=== PATIENT | female | born 1940 | race Caucasian/White ===

== ENCOUNTER 2020-05-31 13:44 | Outpatient (REF) | payer MEDICARE, SELFPAY ==
--- NOTE | 2020-05-31 13:49 | MM_ITS ---
EXAMINATION: MM SCREENING DIGITAL BREAST TOMOSYNTHESIS, BILATERAL CLINICAL INFORMATION: Screening. Asymptomatic. The lifetime risk of breast cancer based on the Tyrer-Cuzick Model is 1%. COMPARISON: Mammography: 08/25/2018, 08/14/2017, 07/30/2016 TECHNIQUE: Digital breast tomosynthesis is performed in both the craniocaudal and mediolateral oblique views along with computer-aided detection (CAD). Synthesized 2D images are generated from the tomosynthesis. FINDINGS: There are scattered areas of fibroglandular density (ACR BI-RADS breast composition Category b). There are no significant masses, abnormal calcifications, or other abnormalities. There is a retroareolar nodule left breast again seen similar to prior exams. There are bilateral vascular calcifications again noted. The axilla and skin contours are unremarkable. MM/MM tomosynthesis screening BI IMPRESSION: No significant changes from prior studies. ASSESSMENT: BI-RADS 2: Benign RECOMMENDATION: Routine annual mammography screening. This patient's information was entered into a reminder system with a target due date for their next mammogram.
== END 2020-05-31 13:45 | disposition home or self-care (01) ==
LOC: HO.MAMMO 13:44
PROVIDERS: PCP Internal Medicine; Visit Provider Internal Medicine
DX: Z12.31 Encounter for screening mammogram for malignant neoplasm of breast (principal)
CPT/HCPCS: 77063; 77067

== ENCOUNTER → 2020-10-15 14:07 | Outpatient (BNVA) | payer MEDICARE, SELFPAY | PROVIDERS: PCP Internal Medicine; Referring Provider Internal Medicine; Visit Provider Internal Medicine | DX: I48.19 Other persistent atrial fibrillation (principal); I95.9 Hypotension, unspecified; I36.1 Nonrheumatic tricuspid (valve) insufficiency | CPT/HCPCS: 93005; 99202 ==

== ENCOUNTER → 2020-10-23 09:45 | Outpatient (REF) | payer MEDICARE, SELFPAY ==
--- NOTE | 2020-10-23 12:06 | ECG_ITS ---
Hook-up date: 2020-10-23 10:18:00 Duration: 26:04:00 Test Indications: PERSISTANT AFIB Medications: [id number] QRS complexes 20 Ventricular ectopics which represent <1 % of total QRS comp. * Supraventricular ectopics which represent % of total QRS comp. * Paced QRS complexs which represent % of total QRS comp. VENTRICULAR ECTOPY 20 Isolated 0 Bigeminal Cycles 0 Couplets 0 Runs 0 Beats in Runs * Beats LONGEST at * BPM at :: -- * Beats FASTEST at * BPM at :: -- SUPRAVENTRICULAR ECTOPY * Isolated * Couplets * Runs * Beats in Runs * Beats LONGEST at * BPM at :: -- * Beats FASTEST at * BPM at :: -- HEART RATES 31 MIN at 15:36:50 2020-10-23 52 AVG 93 MAX at 18:04:44 2020-10-23 LONGEST RR 3.1840 secs at 21:12:20 2020-10-23 S-T LEVELS Channel 1 - 128 mm at 10:18:00 2020-10-23 - 128 mm at 10:18:00 2020-10-23 Channel 2 - 128 mm at 10:18:00 2020-10-23 - 128 mm at 10:18:00 2020-10-23 Channel 3 - 128 mm at 02:93:71 -- - 128 mm at 02:93:71 Basic rhythm Atrial fibrillation Frequent slow VR to AF with average HR of 52 bpm, 82% of time HR < 60 bpm Rare Premature atrial complexes No diary submitted Referred By: Carlitos Mohamud Overread By: ZULEMA DUPONT MD
== END ==
LOC: HO.CARD 09:45
PROVIDERS: PCP Internal Medicine; Referring Provider Internal Medicine; Visit Provider Internal Medicine
DX: I48.19 Other persistent atrial fibrillation (principal)
CPT/HCPCS: 93226

== ENCOUNTER → 2020-11-29 14:43 | Outpatient (REF) | payer MEDICARE, SELFPAY ==
--- NOTE | 2020-11-29 14:47 | CA_ITS ---
Transthoracic Echocardiogram Patient (Last, First, Middle): Abby Gilbert A Gender: Female Date of : 1940 Age: 80 Procedure Date: 11/29/2020 Procedure Type: Transthoracic Echocardiogram Location: OP Height: 165.1 cm Weight: 61.24 kg BSA: 1.67 m2 Heart Rate: bpm BP: 120 / 80 mmHg Pole Incisor Operator: FARSHAD Referring MD: Bryan Malin MD Symptoms: I48.19 - Other persistent atrial fibrillation Study Quality: Good ECG Rhythm: Sinus Conclusions: - The left ventricular systolic function is normal. The calculated ejection fraction is 68% by biplane method. - Mild biatrial enlargement. - There is mild mitral valve regurgitation. - There is moderate tricuspid valve regurgitation. - Mild pulmonary hypertension is present. Findings Left Ventricle Normal left ventricular cavity size. There is normal left ventricular wall thickness. The left ventricular systolic function is normal. The calculated ejection fraction is 68% by biplane method. There is no evidence of regional wall motion abnormalities. Diastolic function is indeterminate on the basis of available data. Right Ventricle Mildly increased right ventricular cavity size. There is low normal right ventricular systolic function. Atria Mild biatrial enlargement. Aortic Valve There is a normal trileaflet aortic valve. There is no aortic valve stenosis. There is no aortic valve regurgitation. Mitral Valve The mitral valve appears normal. There is mild mitral valve regurgitation. There is no mitral valve stenosis. Pulmonic Valve The pulmonic valve was not well visualized. Tricuspid Valve Normal tricuspid valve structure. There is moderate tricuspid valve regurgitation. The right ventricular systolic pressure is 47 mmHg. Mild pulmonary hypertension is present. Great Vessels The asc aorta and aortic arch are normal in size. Venous The inferior vena cava is normal in size and collapses greater than 50% with inspiration. Pericardium/Pleural There is no evidence of pericardial effusion. Prior Study Comparison No significant change compared to prior study dated: 07/07/2018. Measurements 2D Linear Measurements IVSd: 0.88 0.6-0.9/0.6-1.0 cm LVIDd: 4.32 3.9-5.3/4.2-5.9 cm LVIDd Index: 2.59 2.4-3.2/2.2-3.1 cm/m2 LVIDs: 2.55 2.0-3.6 cm LVPWd: 0.76 0.7-1.1 cm Ao Root: 3.10 2.1-3.5 cm LA Diam: 4.00 2.7-3.8/3.0-4.0 cm LAIDs Index: 2.40 1.5-2.3 cm/m2 LV Mass: 136.11 67-162/88-224 g LV Mass Index: 81.50 43-95/49-115 g/m2 LVOT Diam: 2.00 3.0+(-)1.3 cm 2D Systolic Function EF 4C: 57.90 >55% EF 2C: 74.90 >55% EF BiP: 68.20 >55% Aortic Valve AoV Pk Bear: 1.06 AoV Mn Bear: 0.74 AoV VTI: 0.24 AoV Pk Grad: 4.00 Aov Mn Grad: 2.00 CASH Cont.VTI: 2.31 LVOT LVOT Pk Bear: 0.80 LVOT Mn Bear: 0.56 LVOT VTI: 0.18 LVOT Pk Grad: 3.00 LVOT Mn Grad: 1.00 LVOT Diam: 2.00 LVOT Area: 3.14 Tricuspid Valve TR Pk Bear: 3.31 TR Pk Grad: 44.00 RA Press: 3.00 RVSP: 47.00 Great Vessels Aorta Ao Root-2D: 3.10 2.0-3.7 cm Ao Asc: 2.80 2.1-3.4 cm Ao Arch: 2.10 Updated in Other Vendor System with Status of Final Bryan Malin MD electronically signed on 11/30/2020 11:55:06 AM with status of Final
== END ==
LOC: HO.CARD 14:43
PROVIDERS: Visit Provider Internal Medicine
DX: I48.19 Other persistent atrial fibrillation (principal)
CPT/HCPCS: 93306

== ENCOUNTER → 2020-12-03 14:45 | Outpatient (BNVA) | payer MEDICARE, SELFPAY | PROVIDERS: PCP Internal Medicine; Referring Provider Internal Medicine; Visit Provider Internal Medicine | DX: I48.19 Other persistent atrial fibrillation (principal); I95.9 Hypotension, unspecified; I36.1 Nonrheumatic tricuspid (valve) insufficiency; I27.20 Pulmonary hypertension, unspecified; Z79.899 Other long term (current) drug therapy | CPT/HCPCS: 99212 ==

== ENCOUNTER → 2021-04-02 12:44 | Outpatient (BNVA) | payer MEDICARE, SELFPAY | PROVIDERS: PCP Internal Medicine; Referring Provider Internal Medicine; Visit Provider Internal Medicine | DX: I48.19 Other persistent atrial fibrillation (principal); I36.1 Nonrheumatic tricuspid (valve) insufficiency; I27.20 Pulmonary hypertension, unspecified; I95.9 Hypotension, unspecified | CPT/HCPCS: 99212 ==

== ENCOUNTER 2021-06-21 10:58 | Outpatient (REF) | payer MEDICARE, SELFPAY ==
--- NOTE | ~2021-06-21 | MM_ITS ---
EXAMINATION: MM SCREENING DIGITAL BREAST TOMOSYNTHESIS, BILATERAL CLINICAL INFORMATION: Screening. Asymptomatic. The lifetime risk of breast cancer based on the Tyrer-Cuzick Model is 1%. COMPARISON: Mammography: 05/31/2020, 08/25/2018, 08/14/2017, 07/30/2016 TECHNIQUE: Digital breast tomosynthesis is performed in both the craniocaudal and mediolateral oblique views along with computer-aided detection (CAD). Synthesized 2D images are generated from the tomosynthesis. FINDINGS: There are scattered areas of fibroglandular density (ACR BI-RADS breast composition Category b). There are no significant masses, abnormal calcifications, or other abnormalities. Parenchymal pattern is similar to prior studies. There is no developing density or architectural abnormality. There is chronic retroareolar nodule left breast similar to prior studies. Low bilateral small incidental axillary tail nodes again seen. There are bilateral vascular calcifications. No significant changes. MM/MM tomosynthesis screening BI IMPRESSION: No mammographic evidence of malignancy. ASSESSMENT: BI-RADS 2: Benign RECOMMENDATION: Routine annual mammography screening. This patient's information was entered into a reminder system with a target due date for their next mammogram.
== END 2021-06-21 10:59 | disposition home or self-care (01) ==
LOC: HO.MAMMO 10:58
PROVIDERS: PCP Internal Medicine; Visit Provider Internal Medicine
DX: Z12.31 Encounter for screening mammogram for malignant neoplasm of breast (principal)
CPT/HCPCS: 77063; 77067

== ENCOUNTER → 2022-06-03 10:47 | Outpatient (BNVA) | payer MEDICARE, SELFPAY | PROVIDERS: PCP Internal Medicine; Referring Provider Internal Medicine; Visit Provider Internal Medicine | DX: I48.19 Other persistent atrial fibrillation (principal); I95.9 Hypotension, unspecified; I36.1 Nonrheumatic tricuspid (valve) insufficiency; I27.20 Pulmonary hypertension, unspecified; Z79.01 Long term (current) use of anticoagulants; Z79.899 Other long term (current) drug therapy | CPT/HCPCS: 93005; 99212 ==

== ENCOUNTER 2022-06-04 12:00 | Day surgery (SDC) | payer MEDICARE, SELFPAY ==
--- NOTE | 2022-06-03 12:12 | HO.ANESPROP2 ---
Documented by User: Alessandra Sutton NP 06/03/22 12:17 HPI - Anesthesia Eval Consult details Narrative: 82yo F for Upper Endoscopy with Balloon Dilitation Eliquis for afib Stable at yearly cardiology office visit 06/03/2022 PMFSH Active Problems Active Problems: All Active Problems (Updated 12/03/20 @ 15:53 by Bryan Malin MD) Pulmonary hypertension (Acute) Non-rheumatic tricuspid valve insufficiency (Acute) Arterial hypotension (Acute) Persistent atrial fibrillation (Acute) Past Medical History Medical History Non-rheumatic tricuspid valve insufficiency Persistent atrial fibrillation Pulmonary hypertension Family History Family History Father Pacemaker Atrial fibrillation Mother Atrial fibrillation Surgical History Surgical History History of appendectomy History of cholecystectomy History of esophageal surgery History of hysterectomy History of prolapse of bladder Social History Social History Patient Tobacco Use Status: Never used Tobacco Are you DNR?: No Advance Directives: No Advance Directives Information Provided: Yes Nutrition Risks: No Nutritional Risk Patient : No Meds Allergies Allergy/AdvReac Type Severity Reaction Status Date / Time egg [Egg] Allergy Severe DIARRHEA Verified 06/03/22 11:01 shellfish derived Allergy Severe DIARRHEA Verified 06/03/22 11:01 [SHELLFISH DERIVED] sotalol [SOTALOL] Allergy Severe CARDIAC Verified 06/03/22 11:01 ARREST soybean oil [Soybean Oil] Allergy Severe DIARRHEA Verified 06/03/22 11:01 DAIRY PRODUCTS Allergy Severe DIARRHEA Uncoded 04/02/21 12:52 Home Medications Medication Instructions Recorded Confirmed Last Taken Type calcitriol 0.25 mcg capsule 0.25 mcg PO 3XW 10/15/20 06/03/22 Unknown History cholecalciferol (vitamin D3) 50 50 mcg PO DAILY 10/15/20 06/03/22 Unknown History mcg (2,000 unit) capsule furosemide 40 mg tablet 40 mg PO DAILY 10/15/20 06/03/22 Unknown History levothyroxine 25 mcg tablet 25 mcg PO DAILY 10/15/20 06/03/22 Unknown History loperamide 2 mg capsule 2 mg PO Q6H PRN 10/15/20 06/03/22 Unknown History magnesium oxide 400 mg PO BID 10/15/20 06/03/22 Unknown History multivitamin 1 tab PO DAILY 10/15/20 06/03/22 Unknown History omeprazole 20 mg capsule,delayed 20 mg PO DAILY 10/15/20 06/03/22 Unknown History release Exam Exam Date and Time: June 03, 2022 1212 Narrative Narrative: EKG 05/2022 atrial fibrillation at 78/Min; no significant ST-T changes and otherwise unremarkable ECHO 2020 Conclusions: - The left ventricular systolic function is normal.? The ? calculated ejection fraction is 68% by biplane method. ? - Mild biatrial enlargement. ? - There is mild mitral valve regurgitation.? - There is moderate tricuspid valve regurgitation. ? - Mild pulmonary hypertension is present.? ?? Assessment and Plan Assessment Anesthesia Assessment: Chart Reviewed Documented by User: Torri Gonzales MD 06/04/22 13:07 [facility] Past Medical History Medical History Non-rheumatic tricuspid valve insufficiency Persistent atrial fibrillation Pulmonary hypertension Functional capacity: independent ambulation Patient : No Family History Family History Father Pacemaker Atrial fibrillation Mother Atrial fibrillation Family history of problems with anesthesia: No Surgical History Surgical History History of appendectomy History of cholecystectomy History of esophageal surgery History of hysterectomy History of prolapse of bladder History of Problems with Anesthesia: No Social History Social History Patient Tobacco Use Status: Never used Tobacco Are you DNR?: No Advance Directives: No Advance Directives Information Provided: Yes Nutrition Risks: No Nutritional Risk Patient : No Meds Allergies Allergy/AdvReac Type Severity Reaction Status Date / Time egg [Egg] Allergy Severe DIARRHEA Verified 06/03/22 11:01 shellfish derived Allergy Severe DIARRHEA Verified 06/03/22 11:01 [SHELLFISH DERIVED] sotalol [SOTALOL] Allergy Severe CARDIAC Verified 06/03/22 11:01 ARREST soybean oil [Soybean Oil] Allergy Severe DIARRHEA Verified 06/03/22 11:01 DAIRY PRODUCTS Allergy Severe DIARRHEA Uncoded 04/02/21 12:52 Home Medications Medication Instructions Recorded Confirmed Last Taken Type calcitriol 0.25 mcg capsule 0.25 mcg PO 3XW 10/15/20 06/03/22 Unknown History cholecalciferol (vitamin D3) 50 50 mcg PO DAILY 10/15/20 06/03/22 Unknown History mcg (2,000 unit) capsule furosemide 40 mg tablet 40 mg PO DAILY 10/15/20 06/03/22 Unknown History levothyroxine 25 mcg tablet 25 mcg PO DAILY 10/15/20 06/03/22 Unknown History loperamide 2 mg capsule 2 mg PO Q6H PRN 10/15/20 06/03/22 Unknown History magnesium oxide 400 mg PO BID 10/15/20 06/03/22 Unknown History multivitamin 1 tab PO DAILY 10/15/20 06/03/22 Unknown History omeprazole 20 mg capsule,delayed 20 mg PO DAILY 10/15/20 06/03/22 Unknown History release Exam Airway Mallampati Class: II TM Dist: >3cm Neck ROM: Full Heart: RRR Lungs: CTA Assessment and Plan Final Anesthetic Review Family History of Problems with Anesthesia: No History of Problems with Anesthesia: No ASA Class: III Final Preanesthetic Review: No Changes in Pt Med Stat, Meds/Allgs Chart Reviewed, Consent Obtained/Reviewed and Anes Risks/Benef Reviewed Patient Risk: Low Procedure Risk: Low Anesthetic Plan Anesthetic Plan: MAC: Disposition: Standard PACU
[2022-06-04 12:03] VITALS: BP 170/82; PULSE 80; RESP 18; TEMP 36.6; O2SAT 98; BMI 22.4
[2022-06-04] MEDS: Lactated Ringers 1,000 ML 100 ML IVCONT (12:29)
--- NOTE | 2022-06-04 13:00 | MHC.SHP ---
Pre-Procedural Eval Section A Date of Service: 06/04/22 Section B Chief Complaint: Dysphagia, Esophageal obstruction Details of Present Illness: see H&P no changes Relevant Family History (Specify if Yes): No Relevant Social History: None Present Medications: see Short Stay Collaborative assessment Medical History: No relevant PMH History of Previous Operations: No relevant previous surgery Allergies: Allergies Allergy/AdvReac Type Severity Reaction Status Date / Time egg [Egg] Allergy Severe DIARRHEA Verified 06/03/22 11:01 shellfish derived Allergy Severe DIARRHEA Verified 06/03/22 11:01 [SHELLFISH DERIVED] sotalol [SOTALOL] Allergy Severe CARDIAC Verified 06/03/22 11:01 ARREST soybean oil [Soybean Oil] Allergy Severe DIARRHEA Verified 06/03/22 11:01 DAIRY PRODUCTS Allergy Severe DIARRHEA Uncoded 04/02/21 12:52 Review of Systems Sugical H&P ROS: Negative: Constitution, Cardiovascular, Respiratory, Neurological, Psychiatric, Hem-Onc, Allergic/Immunologic, Gastrointestinal, Genitourinary, Musculoskeletal, Integumentary, Endocrine and Eyes/Ears/Nose/Throat Exam Surgical H&P Exam: Normal: HEENT, Normal: Heart, Normal: Lungs, Normal: Extremities, Normal: Abdomen, Normal: Skin and Normal: Neurological Plan Diagnosis/Plan: Unchanged I have reviewed the history and physical and performed a pertinent physical examination on my patient. No changes have occurred unless specified. Time Spent With Patient Time: Total time managing care of this patient today ____ minutes.
--- NOTE | 2022-06-04 13:33 | HO.POSTANES ---
Post Anesthesia Evaluation Post Anesthesia Evaluation Vital Signs: Vital Signs Temp Pulse Resp BP Pulse Ox O2 Del Method 06/04/22 12:03 98 F 80 18 170/82 H 98 Room Air Anesthesia: Monitored Mental Status: Awake Pain Control: Satisfactory Nausea/Vomiting: None Hydration: Adequate Anesthesia-Related Issues: No Anes. Related Issues
[2022-06-04 13:37] VITALS: BP 120/65; PULSE 80; RESP 16; TEMP 36.1; O2SAT 96
--- NOTE | 2022-06-04 13:38 | P.BOP_ITS ---
Brief Operative Note Date of Service: 06/04/22 Pre-op diagnosis: dysphagia Post-op diagnosis: same Procedure: EGD Surgeon: Inder Wilson Anesthesia: MAC Was an [employer] Supervisor used for this Procedure?: No Estimated blood loss (mL): 3 Pathology: other Condition: stable Disposition: PACU
[2022-06-04 13:52] VITALS: BP 140/88; PULSE 86; RESP 16; TEMP 36.6; O2SAT 96
--- NOTE | 2022-06-04 14:45 | HO.POSTANES ---
Post Anesthesia Evaluation Post Anesthesia Evaluation Vital Signs: Vital Signs Temp Pulse Resp BP Pulse Ox O2 Del Method O2 Flow Rate 06/04/22 13:52 97.8 F 86 16 140/88 H 96 Room Air 06/04/22 13:37 97 F 80 16 120/65 96 Simple Mask 4 06/04/22 12:03 98 F 80 18 170/82 H 98 Room Air Anesthesia: Monitored Mental Status: Awake Pain Control: Satisfactory Nausea/Vomiting: None Hydration: Adequate Anesthesia-Related Issues: No Anes. Related Issues
--- NOTE | 2022-06-05 00:16 | OP_ITS ---
SURGEON: Inder Wilson MD INDICATIONS: Dysphagia. PREOPERATIVE DIAGNOSIS: POSTOPERATIVE DIAGNOSIS: PROCEDURE PERFORMED: Upper endoscopy with balloon dilation and biopsy. ESTIMATED BLOOD LOSS: COMPLICATIONS: ANESTHESIA: Monitored anesthesia care. ASSISTANTS: SPECIMENS: DESCRIPTION OF PROCEDURE: Date 06/04/22. A history and physical were performed. The risks and benefits of the procedure were explained to the patient. Informed consent was obtained. The patient was placed in the left lateral decubitus position. The Olympus video gastroscope was introduced into the esophagus, stomach, and duodenum. Examination was performed. The scope was removed. She tolerated the procedure well and was taken to recovery in stable condition. FINDINGS: Esophagus: The esophagus was normal. No stricture was seen. The EG junction was subjectively somewhat tight. This was balloon dilated at 18 and 20 mm with a balloon passed through the scope and inflated to its recommended pressure for 60 seconds. The 20 mm dilation was subsequently repeated. The EG junction appeared widely patent at the termination of the procedure. Stomach: Stomach showed a 12 mm superficial ulcer on the posterior wall approximately 5 cm before the pylorus. Biopsies were obtained from the margin of the ulcer. The ulcer had a clean base and showed no signs of recent hemorrhage. Duodenum the bulb and second portion were normal. IMPRESSION: 1. Dysphagia, status post balloon dilation of the EG junction. 2. Gastric ulcer. RECOMMENDATION: 1. Follow up the biopsy results. MD GISEL Lopez/CADEN / [id number] MTDD
== END 2022-06-04 15:33 | disposition home or self-care (01) ==
PROVIDERS: PCP Internal Medicine; Visit Provider Internal Medicine Gastroenterology
PROC: (CPT 43249; principal; 2022-06-04 13:00)
DX: R13.10 Dysphagia, unspecified (principal); K22.89 Other specified disease of esophagus; K25.9 Gastric ulcer, unspecified as acute or chronic, without hemorrhage or perforation; K58.0 Irritable bowel syndrome with diarrhea; I10 Essential (primary) hypertension; I27.20 Pulmonary hypertension, unspecified; I48.91 Unspecified atrial fibrillation; Z79.01 Long term (current) use of anticoagulants; Z79.899 Other long term (current) drug therapy; Z90.49 Acquired absence of other specified parts of digestive tract
CPT/HCPCS: 43249; 43239; 88305; 88342; C1726

== ENCOUNTER 2022-06-23 11:04 | Outpatient (REF) | payer MEDICARE, SELFPAY ==
--- NOTE | ~2022-06-23 | MM_ITS ---
EXAMINATION: MM SCREENING DIGITAL BREAST TOMOSYNTHESIS, BILATERAL CLINICAL INFORMATION: Screening. Asymptomatic. The lifetime risk of breast cancer based on the Tyrer-Cuzick Model is 1%. COMPARISON: Mammography: 06/21/2021, 05/31/2020, 08/25/2018 TECHNIQUE: Digital breast tomosynthesis is performed in both the craniocaudal and mediolateral oblique views along with computer-aided detection (CAD). Synthesized 2D images are generated from the tomosynthesis. FINDINGS: There are scattered areas of fibroglandular density (ACR BI-RADS breast composition Category b). There are no significant masses, abnormal calcifications, or other abnormalities. Parenchymal pattern is similar to prior studies. There is no developing density or architectural abnormality. The axilla and skin contours are unremarkable. No significant changes. MM/MM tomosynthesis screening BI IMPRESSION: No mammographic evidence of malignancy. ASSESSMENT: BI-RADS 2: Benign RECOMMENDATION: Routine annual mammography screening. This patient's information was entered into a reminder system with a target due date for their next mammogram.
== END 2022-06-23 11:05 | disposition home or self-care (01) ==
LOC: HO.MAMMO 11:04
PROVIDERS: PCP Internal Medicine; Visit Provider Internal Medicine
DX: Z12.31 Encounter for screening mammogram for malignant neoplasm of breast (principal)
CPT/HCPCS: 77063; 77067

== ENCOUNTER 2022-09-22 08:51 | Outpatient (REF) | payer MEDICARE, SELFPAY ==
--- NOTE | ~2022-09-22 | FL_ITS ---
EXAMINATION: XR FLUOROSCOPY UPPER GI WITH AIR CLINICAL INFORMATION: Acute gastric ulcer. COMPARISON: None available. TECHNIQUE: Routine upper GI air-contrast study was performed in upright and lying position. FINDINGS: Following oral administration of thick barium and effervescent granules, there is normal propagation of bolus from the oral cavity through the pharynx and esophagus and into the stomach without obstruction or narrowing. There is small caliber and irregularity involving the esophagus with diminished peristalsis suggestive of presbyesophagus. On placing patient supine and prone lying, the course, caliber and peristalsis of the stomach are normal. There is mild gastroesophageal reflux without hiatal hernia. The mucosal pattern of the stomach and the duodenum is normal. There are at least 2 diverticuli seen in the third segment of the duodenum There is evidence of previous cholecystectomy. FLUOROSCOPY TIME: 3.9 minutes. DOSE AREA PRODUCT: 34.639 uGy-m2 (microgray-meter squared). FL/FL upper GI w air IMPRESSION: Slightly irregular and small caliber esophagus with tertiary peristalsis suggestive of presbyesophagus. Rest of the esophagus is unremarkable. No gastric ulcer seen. Mild gastroesophageal reflux but no hiatal hernia. At least 2 diverticuli seen in the second segment of the duodenum.
== END 2022-09-22 08:52 | disposition home or self-care (01) ==
LOC: HO.XRAY 08:51
PROVIDERS: PCP Internal Medicine; Visit Provider Internal Medicine Gastroenterology
DX: K25.3 Acute gastric ulcer without hemorrhage or perforation (principal)
CPT/HCPCS: 74246

== ENCOUNTER 2023-06-04 09:58 | Outpatient (AMB) | payer MEDICARE, SELFPAY ==
--- NOTE | 2023-06-04 10:05 | A.OFFVIS_ITS ---
Intake Vital Signs 06/04/23 10:06 Height 5 ft 4 in Weight 127 lb 13.89 oz BMI 21.9 BP 140/76 H Blood Pressure Location Lt brachial Position Sitting Pulse 62 Intake Visit Reasons: 1 year fu Intake Note: 1 year follow up w/ EKG Assistant Secretary Required: No Accompanied by: Self / Same As Patient Allergies egg [Egg] Allergy (Severe, Verified 06/03/22 11:01) DIARRHEA shellfish derived [SHELLFISH DERIVED] Allergy (Severe, Verified 06/03/22 11:) DIARRHEA sotalol [SOTALOL] Allergy (Severe, Verified 06/03/22 11:) CARDIAC ARREST soybean oil [Soybean Oil] Allergy (Severe, Verified 06/03/22 11:) DIARRHEA DAIRY PRODUCTS Allergy (Severe, Uncoded 04/02/21 12:52) DIARRHEA Medication List - Last Reconciled 06/04/23 by Bryan Malin MD apixaban (Eliquis) 5 mg PO BID calcitriol 0.25 mcg PO 3XW cholecalciferol (vitamin D3) 50 mcg PO DAILY diltiazem HCl 240 mg PO DAILY furosemide 40 mg PO DAILY levothyroxine 25 mcg PO DAILY loperamide 2 mg PO Q6H PRN magnesium oxide 400 mg PO BID multivitamin 1 tab PO DAILY omeprazole 20 mg PO DAILY HPI HPI Comments History of Present Illness Details Abby is here for follow up regarding atrial fibrillation. Previous patient of . 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 This led to cardiac arrest from which she was successfully resuscitated. Subsequently, she was briefly on hemodialysis. She had a complicated course but then eventually recovered completely. Overall, she is doing pretty good. She states she has been losing some weight, intentionally. Otherwise, no cardiac symptoms at all. [facility] Medical History Non-rheumatic tricuspid valve insufficiency Persistent atrial fibrillation Pulmonary hypertension Surgical History History of cholecystectomy History of prolapse of bladder History of hysterectomy History of appendectomy History of esophageal surgery Family History Father Pacemaker Atrial fibrillation Mother Atrial fibrillation Social History Patient Tobacco Use Status: Never used Tobacco Review of Systems Const Denies weakness ENT Denies dizziness Card Denies chest pain, Denies chest pain with activity, Denies syncope, Denies rapid heart rate, Denies pedal edema, Denies edema, Denies leg edema, Denies lightheadedness, Denies palpitations, Denies dyspnea, Denies dyspnea on exertion and Denies orthopnea Resp Denies cough, Denies dyspnea and Denies dyspnea on exertion GI Denies hematochezia and Denies change in stool character Musc Denies abnormal gait, Denies muscle cramps, Denies muscle weakness, Denies numbness, Denies radiating pain into limb and Denies tingling Neuro Denies abnormal gait, Denies dizziness, Denies syncope, Denies numbness, Denies tingling and Denies weakness Endo Denies palpitations Physical Exam Vital Signs: Last Vital Signs Pulse 62 06/04/23 10:06 BP 140/76 H 06/04/23 10:06 BMI result Body Mass Index 21.9 Const General: comfortable and no acute distress Orientation/consciousness: patient oriented x3 HEENT Other: Unremarkable Head: Yes normal to inspection Neck Neck: Yes normal visual inspection Chest Chest palpation & inspection: normal inspection of the chest Resp Auscultation: clear to auscultation bilaterally Cardio Palpation: normal PMI Heart sounds: S1 normal heart sound present, S2 normal heart sound present, no gallops, no murmurs and no rubs GI Palpation (GI): Soft to palpation Back/Spine/Pelvis Other: unremarkable Skin General skin exam: no rashes or lesions noted Neuro General: patient oriented x3 Extrem General: Yes normal to inspection Psych Mental Status: mental status grossly normal Office Procedures EKG Details: EKG with atrial fibrillation at a rate of 62/Min; no significant ST-T changes and otherwise unremarkable. 15640-Caqviplivykkhrhpv, Complete Assessment & Plan Assessment & Plan (1) Persistent atrial fibrillation: Code(s): I48.19 - Other persistent atrial fibrillation Plan: In the past, Holter with atrial fibrillation/ slow ventricular rates. Off Coreg. Continue diltiazem. Continue Eliquis. Patient states she did labs in [facility] and hence will get them. (2) Arterial hypotension: Code(s): I95.9 - Hypotension, unspecified Plan: Blood pressure seems to be rather borderline high. No new changes. (3) Non-rheumatic tricuspid valve insufficiency: Comment: Moderate by echo Code(s): I36.1 - Nonrheumatic tricuspid (valve) insufficiency Plan: Prior echocardiogram from 2019 shows moderate to severe tricuspid regurgitation. Repeat study shows moderate tricuspid regurgitation. No specific management for this. Clinically, no heart failure. Can recheck before next visit as it has been a few years. (4) Pulmonary hypertension: Comment: Mild by Echo Code(s): I27.20 - Pulmonary hypertension, unspecified Plan: Mild pulmonary hypertension seen on echocardiogram. Could be from long-standing atrial fibrillation. No specific management. Orders: Orders CA echo transthoracic complete 51 Weeks I27.20 - Pulmonary hypertension, unspecified, I36.1 - Nonrheumatic tricuspid (valve) insufficiency, I48.19 - Other persistent atrial fibrillation Coding Level of Care Code Est Pt Level 4 (43564) Diagnoses Persistent atrial fibrillation I48.19 Arterial hypotension I95.9 Non-rheumatic tricuspid valve insufficiency I36.1 Pulmonary hypertension I27.20 CPT Codes EKG - CPT: 29954-Kihyhxqbffsrkzowu, Complete ([id number])
[2023-06-04 10:06] VITALS: BP 140/76; PULSE 62; BMI 21.9
== END 2023-06-04 10:19 | disposition home or self-care (01) ==
PROVIDERS: PCP Internal Medicine; Visit Provider Internal Medicine
DX: I48.19 Other persistent atrial fibrillation (principal); I95.9 Hypotension, unspecified; I36.1 Nonrheumatic tricuspid (valve) insufficiency; I27.20 Pulmonary hypertension, unspecified
CPT/HCPCS: 93010; 99214

== ENCOUNTER → 2023-06-04 09:58 | Outpatient (BNVA) | payer MEDICARE, SELFPAY | PROVIDERS: PCP Internal Medicine; Visit Provider Internal Medicine | DX: I48.19 Other persistent atrial fibrillation (principal); I36.1 Nonrheumatic tricuspid (valve) insufficiency; I95.9 Hypotension, unspecified; I27.20 Pulmonary hypertension, unspecified | CPT/HCPCS: 93005; 99212 ==

== ENCOUNTER 2023-06-25 11:37 | Outpatient (REF) | payer MEDICARE, SELFPAY | END 2023-06-25 11:38 | disposition home or self-care (01) | LOC: HO.MAMMO 11:37 | PROVIDERS: PCP Internal Medicine; Visit Provider Internal Medicine | DX: Z12.31 Encounter for screening mammogram for malignant neoplasm of breast (principal) | CPT/HCPCS: 77063; 77067 ==

== ENCOUNTER → 2023-06-25 11:45 | Outpatient (BNV) | payer MEDICARE, SELFPAY | PROVIDERS: PCP Internal Medicine; Visit Provider Radiology Diagnostic Radiology | DX: Z12.31 Encounter for screening mammogram for malignant neoplasm of breast (principal) | CPT/HCPCS: 77063; 77067 ==

== ENCOUNTER 2023-12-16 12:01 | Day surgery (SDC) | payer MEDICARE, SELFPAY ==
--- NOTE | 2023-12-15 11:47 | HO.ANESPROP2 ---
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 This led to cardiac arrest from which she was successfully resuscitated. Subsequently, she was briefly on hemodialysis. She had a complicated course but then eventually recovered completely. Follows [facility] [place] yearly. Stable at routine visit 05/2023 [facility] Active Problems Active Problems: All Active Problems Arterial hypotension (Acute) Persistent atrial fibrillation (Acute) Past Medical History Medical History (Updated 12/16/23 @ 12:50 by Brianna Rojas RN) DNR (do not resuscitate) Pulmonary hypertension Non-rheumatic tricuspid valve insufficiency Persistent atrial fibrillation Family History Family History Father Pacemaker Atrial fibrillation Mother Atrial fibrillation Family history of problems with anesthesia: No Surgical History Surgical History History of cholecystectomy History of prolapse of bladder History of hysterectomy History of appendectomy History of esophageal surgery History of Problems with Anesthesia: No Social History Social History Patient Tobacco Use Status: Never used Tobacco Are you DNR?: Yes Advance Directives: No Advance Directives Information Provided: Yes Meds Allergies Allergy/AdvReac Type Severity Reaction Status Date / Time egg [Egg] Allergy Severe DIARRHEA Verified 06/03/22 11:01 shellfish derived Allergy Severe DIARRHEA Verified 06/03/22 11:01 [SHELLFISH DERIVED] sotalol [SOTALOL] Allergy Severe CARDIAC Verified 06/03/22 11:01 ARREST soybean oil [Soybean Oil] Allergy Severe DIARRHEA Verified 06/03/22 11:01 DAIRY PRODUCTS Allergy Severe DIARRHEA Uncoded 04/02/21 12:52 Home Medications ?Medication ?Instructions ?Recorded ?Confirmed ?Last Taken ?Type calcitriol 0.25 mcg capsule 0.25 mcg PO 3XW 10/15/20 06/04/23 Unknown History cholecalciferol (vitamin D3) 50 50 mcg PO DAILY 10/15/20 06/04/23 Unknown History mcg (2,000 unit) capsule furosemide 40 mg tablet 40 mg PO DAILY 10/15/20 06/04/23 Unknown History levothyroxine 25 mcg tablet 25 mcg PO DAILY 10/15/20 06/04/23 Unknown History loperamide 2 mg capsule 2 mg PO Q6H PRN 10/15/20 06/04/23 Unknown History magnesium oxide 400 mg PO BID 10/15/20 06/04/23 Unknown History multivitamin 1 tab PO DAILY 10/15/20 06/04/23 Unknown History omeprazole 20 mg capsule,delayed 20 mg PO DAILY 10/15/20 06/04/23 12/16/23 History release diltiazem HCl 240 mg 240 mg PO DAILY 06/04/23 06/04/23 12/16/23 History capsule,extended release 24 hr Exam Narrative Narrative: EKG 05/2023 atrial fibrillation at a rate of 62/Min; no significant ST-T changes and otherwise unremarkable ECHO 2020 Conclusions: - The left ventricular systolic function is normal. The calculated ejection fraction is 68% by biplane method. - Mild biatrial enlargement. - There is mild mitral valve regurgitation. - There is moderate tricuspid valve regurgitation. - Mild pulmonary hypertension is present. Assessment and Plan Assessment Anesthesia Assessment: Chart Reviewed Final Anesthetic Review Family History of Problems with Anesthesia: No History of Problems with Anesthesia: No Documented by User: Haroldo Gonzales MD 12/16/23 14:00 [facility] Past Medical History Medical History (Updated 12/16/23 @ 12:50 by Brianna Rojas RN) DNR (do not resuscitate) Pulmonary hypertension Non-rheumatic tricuspid valve insufficiency Persistent atrial fibrillation Family History Family History Father Pacemaker Atrial fibrillation Mother Atrial fibrillation Surgical History Surgical History History of cholecystectomy History of prolapse of bladder History of hysterectomy History of appendectomy History of esophageal surgery Social History Social History Patient Tobacco Use Status: Never used Tobacco Are you DNR?: Yes Advance Directives: No Advance Directives Information Provided: Yes Meds Allergies Allergy/AdvReac Type Severity Reaction Status Date / Time egg [Egg] Allergy Severe DIARRHEA Verified 06/03/22 11:01 shellfish derived Allergy Severe DIARRHEA Verified 06/03/22 11:01 [SHELLFISH DERIVED] sotalol [SOTALOL] Allergy Severe CARDIAC Verified 06/03/22 11:01 ARREST soybean oil [Soybean Oil] Allergy Severe DIARRHEA Verified 06/03/22 11:01 DAIRY PRODUCTS Allergy Severe DIARRHEA Uncoded 04/02/21 12:52 Home Medications ?Medication ?Instructions ?Recorded ?Confirmed ?Last Taken ?Type calcitriol 0.25 mcg capsule 0.25 mcg PO 3XW 10/15/20 06/04/23 Unknown History cholecalciferol (vitamin D3) 50 50 mcg PO DAILY 10/15/20 06/04/23 Unknown History mcg (2,000 unit) capsule furosemide 40 mg tablet 40 mg PO DAILY 10/15/20 06/04/23 Unknown History levothyroxine 25 mcg tablet 25 mcg PO DAILY 10/15/20 06/04/23 Unknown History loperamide 2 mg capsule 2 mg PO Q6H PRN 10/15/20 06/04/23 Unknown History magnesium oxide 400 mg PO BID 10/15/20 06/04/23 Unknown History multivitamin 1 tab PO DAILY 10/15/20 06/04/23 Unknown History omeprazole 20 mg capsule,delayed 20 mg PO DAILY 10/15/20 06/04/23 12/16/23 History release diltiazem HCl 240 mg 240 mg PO DAILY 06/04/23 06/04/23 12/16/23 History capsule,extended release 24 hr Exam Airway Mallampati Class: III TM Dist: >3cm Neck ROM: Limited Assessment and Plan Assessment Anesthesia Assessment: Anesthesia Plan Discussed Final Anesthetic Review NPO: Yes ASA Class: III Final Preanesthetic Review: No Changes in Pt Med Stat, Meds/Allgs Chart Reviewed, Consent Obtained/Reviewed and Anes Risks/Benef Reviewed Patient Risk: Intermediate Procedure Risk: Low Anesthetic Plan Anesthetic Plan: TIVA Disposition: Standard PACU
--- NOTE | 2023-12-16 07:42 | MHC.SHP ---
Pre-Procedural Eval Section A - 24 Hr Update-Section A only Date of Service: 12/16/23 The patient is an INPATIENT: No Changes since office visit: No Cold of Flu in the past 2 weeks, No New Medical Problems, No Changes in Medication and No Patient answered all questions The patient has been examined within 24 hours of the surgical procedure. The History & Physical has been completed within 30 days and I have reviewed it.: Yes Section B - Complete if H&P > 30 days Chief Complaint: Dysphagia, unspecified Allergies: Allergies Allergy/AdvReac Type Severity Reaction Status Date / Time egg [Egg] Allergy Severe DIARRHEA Verified 06/03/22 11:01 shellfish derived Allergy Severe DIARRHEA Verified 06/03/22 11:01 [SHELLFISH DERIVED] sotalol [SOTALOL] Allergy Severe CARDIAC Verified 06/03/22 11:01 ARREST soybean oil [Soybean Oil] Allergy Severe DIARRHEA Verified 06/03/22 11:01 DAIRY PRODUCTS Allergy Severe DIARRHEA Uncoded 04/02/21 12:52 Plan I have reviewed the history and physical and performed a pertinent physical examination on my patient. No changes have occurred unless specified. Time Spent With Patient Time: Total time managing care of this patient today ____ minutes.
[2023-12-16 12:39] VITALS: BP 119/96; PULSE 54; RESP 18; TEMP 36.3; O2SAT 96; BMI 22.6
[2023-12-16] MEDS: Lactated Ringers 1,000 ML 100 ML IVCONT (12:58)
[2023-12-16 14:36] VITALS: BP 136/55; PULSE 69; RESP 16; TEMP 36.1; O2SAT 97
[2023-12-16 14:51] VITALS: BP 169/93; PULSE 69; RESP 16; TEMP 36.1; O2SAT 99
--- NOTE | 2023-12-16 16:10 | OP_ITS ---
DATE OF SERVICE: 12/16/2023 SURGEON: Inder Wilson MD INDICATIONS: Dysphagia and history of gastric ulcer. PREOPERATIVE DIAGNOSIS: POSTOPERATIVE DIAGNOSIS: PROCEDURE PERFORMED: Upper endoscopy with biopsy and balloon dilation. ESTIMATED BLOOD LOSS: COMPLICATIONS: ANESTHESIA: Monitored anesthesia care. ASSISTANTS: SPECIMENS: DESCRIPTION OF PROCEDURE: A history and physical was performed. The risks and benefits of the procedure were explained to the patient and informed consent was obtained. The patient was placed in the left lateral decubitus position. The Olympus video gastroscope was introduced into the esophagus, stomach, and duodenum. Examination was performed and the scope was removed. She tolerated the procedure well and was returned to recovery area in stable condition. FINDINGS: Esophagus: There was retained secretions in the esophagus consistent with swallowed saliva suggesting poor motility. No obstruction was seen. The EG junction was identified at about 35 cm from the gums. The scope passed through this into the stomach. Balloon dilation of the distal esophagus and EG junction was performed at 18 and 20 mm with a balloon passed through the scope and inflated in standard manner with no immediate complications. The inflations were for 60 seconds each. The EG junction was widely patent at the termination of the procedure. Stomach: The stomach showed multiple gastric polyps. The largest of these appeared to be somewhat inflamed measuring approximately 12 to 13 mm and this was biopsied. They had the appearance of fundic gland polyps. There was a 7 x 10 mm ulcer on the posterior wall approximately 5 cm before the duodenal bulb similar to her last endoscopy. This appeared benign, but was biopsied as it had not healed since her last endoscopy. Duodenum: The bulb and 2nd portion were normal. IMPRESSION: 1. Dysphagia. 2. Gastric polyps. 3. Gastric ulcer. RECOMMENDATIONS: 1. Increase omeprazole to 40 mg daily. 2. Follow up the biopsy results. MD GISEL Lopez/CADEN / [id number]
== END 2023-12-16 15:18 | disposition home or self-care (01) ==
PROVIDERS: PCP Internal Medicine; Visit Provider Internal Medicine Gastroenterology
PROC: (CPT 43249; principal; 2023-12-16 13:40)
DX: R13.10 Dysphagia, unspecified (principal); K25.9 Gastric ulcer, unspecified as acute or chronic, without hemorrhage or perforation; K22.2 Esophageal obstruction; K21.9 Gastro-esophageal reflux disease without esophagitis; K31.7 Polyp of stomach and duodenum; K11.7 Disturbances of salivary secretion; I48.91 Unspecified atrial fibrillation; I27.20 Pulmonary hypertension, unspecified; I36.1 Nonrheumatic tricuspid (valve) insufficiency; I10 Essential (primary) hypertension; K58.0 Irritable bowel syndrome with diarrhea; Z79.01 Long term (current) use of anticoagulants; Z79.899 Other long term (current) drug therapy; Z66 Do not resuscitate; Z91.011 Allergy to milk products; Z98.890 Other specified postprocedural states
CPT/HCPCS: 43249; 43239; 88305; 88313; 88342; C1726; J1596; J2704

== ENCOUNTER 2024-03-17 10:28 | Outpatient (REF) | payer MEDICARE, SELFPAY | END 2024-03-17 10:29 | disposition home or self-care (01) | LOC: HO.SH 10:28 | PROVIDERS: Visit Provider Internal Medicine | DX: Z01.118 Encounter for examination of ears and hearing with other abnormal findings (principal); H90.3 Sensorineural hearing loss, bilateral | CPT/HCPCS: 92557 ==

== ENCOUNTER 2024-04-29 13:48 | Outpatient (REF) | payer SELFPAY ==
--- NOTE | 2024-04-29 15:06 | MHC.AU.MED ---
Medical Clearance for Hearing Instrumentation Date: 04/29/24 Patient Name: Abby Gilbert Date of : 1940 Referring Provider: Carlitos Mohamud MD We have seen your patient on 04/29/24 and have determined that they are a candidate for amplification (See accompanying report). Specifically, they would benefit from: Hearing aid use in both ears There is a statute that addresses Medical Evaluation Requirements prior to fitting a patient with a hearing aid. According to [place] statute 265 CMR:6.03(1), (a) General. Except as provided in 265 CMR 6.03(1)(b), a superintendent fish hatchery shall not sell a hearing aid unless the prospective user has presented to the superintendent fish hatchery a written statement signed by a licensed physician that states that the patient's hearing loss has been medically evaluated and the patient may be considered a candidate for a hearing aid. The medical evaluation must have taken place within the preceding six months. Please note: Due to the [place] Statute referenced above, we cannot accept a signature other than that of a licensed physician. [place] and [place] signatures cannot be accepted. I am in agreement with the above recommendation. There is no medical contraindication for hearing instrumentation. Physician Signature Date Physician Name (Printed)
== END 2024-04-29 13:49 | disposition home or self-care (01) ==
LOC: HO.HAP 13:48
PROVIDERS: Visit Provider Internal Medicine
DX: Z46.1 Encounter for fitting and adjustment of hearing aid (principal); H90.3 Sensorineural hearing loss, bilateral
CPT/HCPCS: 92590

== ENCOUNTER 2024-05-05 14:51 | Outpatient (REF) | payer SELFPAY ==
--- OUTSIDE RECORDS SUMMARY | 2024-05-05 15:05 | XMS_ITS ---
Author Organization [facility] Address [address] [place] [address] Care Team Providers Care Enroller Name Role Phone Carlitos Mohamud MD Primary Care Provider Unavailab gia Wilson Jr, Inder Miguel REASON FOR VISIT omeprazole MEDICATIONS Medication SIG (Take, Route, Fr equency, Duration) Notes Start Date End Date Status Omeprazole 40 MG 1 capsule 30 minutes before morning meal Orally Once a day for 30 day(s) 12/16/2023 Active Encounters Encounter Location Date Provider Diagnosis [facility] [address] [place] [address] 12/16/2023 Inder Wilson Jr PLAN OF TREATMENT Medication Medication Name Sig Start Date Stop Date Notes Omeprazole 40 MG 1 capsule 30 minutes before morning meal Orally Once a day for 30 day(s) 12/16/2023 Next Appt Details Provider Name:Inder womack Jr, 06/10/2024 09:50:00 AM, [address] [place] [address] , [place], [place], [phone],
--- OUTSIDE RECORDS SUMMARY | 2024-05-05 15:05 | XMS_ITS ---
Author Organization [facility] Address [address] [place] [address] Care Team Providers Care Smog Technician Name Role Phone Carlitos Mohamud MD Primary Care Provider Unavailab Inder Amezquita Jr Unavailable REASON FOR VISIT appt Encounters Encounter Location Date Provider Diagnosis [facility] [address] [place] [address] 12/18/2023 Inder Wilson Jr PLAN OF TREATMENT Next Appt Details Provider Name:Inder womack Jr, 06/10/2024 09:50:00 AM, [address] [place] [address] , [place], [place], [phone],
--- OUTSIDE RECORDS SUMMARY | 2024-05-05 15:05 | XMS_ITS | Patient Health Record ---
Author Organization [facility] Address [address] [place] [address] Care Team Providers Care Php Architect Name Role Phone Cade THACKER, Carlitos Primary [...] Pathology Reviewed date:12/21/2023 07:50:57 AM Interpretation: Performing Lab:[facility], [address] [place] [phone] Notes/Report: REASON FOR REFERRAL No Information MEDICATIONS [...] Notes Problem Esophageal stricture (K22.2) Active confirmed 97441981 Problem Dysphagia, unspecified type (R13.10) Active confirmed 32395161 Problem Irritable bowel syndrome with diarrhea (K58.0) Active confirmed 300870282 Problem Dysphagia (R13.10) Active confirmed Dys phagia (61949100) Problem Acute gastric ulcer without hemorrhage or perforation (K25.3) Active confirmed 87877560 Problem Gastric polyp (K31.7) Active confirmed Gastric polyp (42149272) Problem Gastric ulcer (K25.9) Active confirmed Gastric ulcer (588457308) Problem intermission coordinator (current) use of anticoagulants (Z79.01) Active confirmed 780335896 VITAL SIGNS Temperature 97.3 degrees Fahrenheit 04/04/2024 Blood pressure diastolic 00 mm Hg 04/04/2024 Height 65 in 04/04/2024 Blood pressure systolic 000 mm Hg 04/04/2024 Weight 132 lb 6 oz lbs 04/04/2024 BMI 22.03 kg/m2 04/04/2024 Encounters Encounter Location Date Provider Diagnosis [facility] [place] [address] [place] [phone] 12/16/2023 Inder Wilson Jr Dysphagia R13.10 ; Gastric polyp K31.7 and Gastric ulcer K25.9 [facility] [address] [facility] [place] [address] 11/23/2023 Inder Wilson Jr [facility] [address] [place] [address] [place] [address] 12/11/2023 Inder Wilson Jr Dysphagia, unspecified type R13.10 and Esophageal stricture K22.2 [facility] [address] [place] [address] 04/04/2024 Inder Wilson Jr Acute gastric ulcer without hemorrhage or perforation K25.3 ; Dysphagia, unspecified type R13.10 and intermission coordinator (current) use of anticoagulants Z79.01 [facility] [address] [place] [address] 12/16/2023 Inder Wilson Jr [facility] [address] [place] [address] 12/18/2023 Inder Wilson Jr ASSESSMENTS Encounter Date [...] Gastric ulcer (ICD-1 0 - K25.9) 04/04/2024 intermission coordinator (current) use of anticoagulants (ICD-10 - Z79.01) [...] Name:Inder wynnenancy Rosario, 06/10/2024 09:50:00 AM, [address] [facility] , [place], [place], [phone], Insurance Providers Payer Name Payer Address Payer Phone Subscriber Number Group Number Insured Name Patient Relationship to Insured Coverage Start Date Coverage End Date MED[place]ARE OF [place] [address] [facility] [place] [address] [id number] PAULASHELTON Roy Self - patient is the insured MEDEX ATTN CLAIMS [address] [place] [address] [phone] [id number] SHELTON MITCHELL Self - patient is the [...]
--- OUTSIDE RECORDS SUMMARY | 2024-05-05 15:05 | XMS_ITS ---
Author Organization [facility] Address [address] [place] [address] Care Team Providers Care Principal Java Software Engineer Name Role Phone Cade THACKER, Carlitos Primary [...] day for 30 day(s) 12/16/2023 Active Move [facility] Advance - as directed Orally once [...] W/U Status Risk SNOMED Code Notes Problem outpatient therapist (current) use of anticoagulants (Z79.01) Active confirmed 427099742 VITAL SIGNS BMI 22.03 kg/m2 04/04/2024 Blood pressure systolic 000 mm Hg 04/04/20 24 Blood pressure diastolic 00 mm Hg 024 Height 65 in 04/04/2024 Temperature 97.3 degrees Fahrenheit 04/04/20 24 Weight 132 lb 6 oz lbs 04/04/2024 Encounters Encounter Location Date Provider Diagnosis [facility] [address] [facility] [address] [place] [phone] 04/04/2024 Inder Wilson Jr Acute gastric ulcer without hemorrhage or perforation K25.3 ; Dysphagia, unspecified type R13.10 and FDC (current) use of anticoagulants Z79.01 ASSESSMENTS Encounter Date Diagnosis Assessment Notes Treatment Notes Treatment Clinical Notes 04/04/2024 Acute gastric ulcer without hemorrhage or perforation (ICD-10 - K25.3) 04/04/2024 Dysphagia, unspecified type (ICD-10 - R13.10) 04/04/2024 outpatient therapist (current) use of anticoagulants (ICD-10 - Z79.01) PLAN OF TREATMENT Future Test Test Name Order Date UPPER GI ENDOSCOPY 04/04/2024 Next Appt Details Follow Up: 1 Year, Reason: Provider Name:Inder womack Jr, 06/10/2024 09:50:00 AM, [address] [place] [address] , [place], [place], [phone],
== END 2024-05-05 14:52 | disposition home or self-care (01) ==
LOC: HO.HAP 14:51
PROVIDERS: Visit Provider Internal Medicine
DX: Z46.1 Encounter for fitting and adjustment of hearing aid (principal); H90.3 Sensorineural hearing loss, bilateral
CPT/HCPCS: V5261; V5299

== ENCOUNTER → 2024-05-13 09:58 | Outpatient (REF) | payer MEDICARE, SELFPAY ==
--- OUTSIDE RECORDS SUMMARY | 2024-05-13 10:00 | XMS_ITS ---
Author Organization [facility] Address [address] [place] [address] Care Team Providers Care Maple Sugar Maker Name Role Phone Cade THACKER, Carlitos Primary Care Provider Inder Beckman Jr Unavailable [phone] ALLERGIES Allergen (clinical drug ingredient) Drug/Non Drug [...] day for 30 day(s) 12/16/2023 Active Move [facility] Advance - as directed Orally once a [...] W/U Status Risk SNOMED Code Notes Problem exterminator (current) use of anticoagulants (Z79.01) Active confirmed 046528593 VITAL SIGNS BMI 22.03 kg/m2 04/04/2024 Blood pressure systolic 000 mm Hg 04/04/20 24 Blood pressure diastolic 00 mm Hg 024 Height 65 in 04/04/2024 Temperature 97.3 degrees Fahrenheit 04/04/20 24 Weight 132 lb 6 oz lbs 04/04/2024 Encounters Encounter Location Date Provider Diagnosis [facility] [address] [facility] [address] [place] [address] 04/04/2024 Inder Wilson Jr Acute gastric ulcer without hemorrhage or perforation K25.3 ; Dysphagia, unspecified type R13.10 and assisted (current) use of anticoagulants Z79.01 ASSESSMENTS Encounter Date Diagnosis Assessment Notes Treatment Notes Treatment Clinical Notes 04/04/2024 Acute gastric ulcer without hemorrhage or perforation (ICD-10 - K25.3) 04/04/2024 Dysphagia, unspecified type (ICD-10 - R13.10) 04/04/2024 exterminator (current) use of anticoagulants (ICD-10 - Z79.01) PLAN OF TREATMENT Future Test Test Name Order Date UPPER GI ENDOSCOPY 04/04/2024 Next Appt Details Follow Up: 1 Year, Reason: Provider Name:Inder womack Jr, 06/10/2024 09:50:00 AM, [address] [place] [address] , [place], [place], [phone],
--- OUTSIDE RECORDS SUMMARY | 2024-05-13 10:00 | XMS_ITS ---
Author Organization [facility] Address [address] [place] [address] Care Team Providers Care Aircraft Systems Technician Name Role Phone Carlitos Mohamud MD Primary Care Provider Unavailab Inder Amezquita Jr Unavailable [phone] REASON FOR VISIT appt Encounters Encounter Location Date Provider Diagnosis [facility] [address] [place] [address] 12/18/2023 Inder Wilson Jr PLAN OF TREATMENT Next Appt Details Provider Name:Inder womack Jr, 06/10/2024 09:50:00 AM, [address] [place] [address] , [place], [place], [phone],
--- NOTE | 2024-05-13 10:01 | CA_ITS ---
Transthoracic Echocardiogram Patient (Last, First, Middle): Abby Gilbert A Gender: Female Date of : 1940 Age: 84 Procedure Date: 05/13/2024 Procedure Type: Transthoracic Echocardiogram Location: OP Height: 162. cm Weight: 58.97 kg BSA: 1.62 m2 Heart Rate: 62 bpm BP: 178 / 90 mmHg Chemistry Specialist: JESS Referring MD: Bryan Malin MD Symptoms: I48.19 - Other persistent atrial fibrillation Study Quality: Adequate ECG Rhythm: Atrial Fibrillation Conclusions: - The left ventricular systolic function is normal. The calculated ejection fraction is 63% by biplane method. - Severe biatrial enlargement. - There is mild to moderate tricuspid valve regurgitation. Findings Left Ventricle Normal left ventricular cavity size. The left ventricular systolic function is normal. The calculated ejection fraction is 63% by biplane method. There is no evidence of regional wall motion abnormalities. Diastolic function is indeterminate on the basis of available data. There is moderate septal asymmetric hypertrophy. Right Ventricle Mildly increased right ventricular cavity size. There is mildly decreased right ventricular systolic function. Atria Severe biatrial enlargement. Aortic Valve There is a normal trileaflet aortic valve. There is no aortic valve stenosis. There is no aortic valve regurgitation. Mitral Valve The mitral valve appears normal. There is mild mitral valve regurgitation. There is no mitral valve stenosis. Pulmonic Valve The pulmonic valve is likely normal. Tricuspid Valve Normal tricuspid valve structure. There is mild to moderate tricuspid valve regurgitation. There is no evidence of pulmonary hypertension. Great Vessels The asc aorta is normal in size. Venous The inferior vena cava is normal in size and collapses greater than 50% with inspiration. Pericardium/Pleural There is a trivial pericardial effusion. Prior Study Comparison Changes noted compared to prior study dated: 11/29/2020. Increase in atrial size. Measurements 2D Linear Measurements IVSd: 1.32 0.6-0.9/0.6-1.0 cm LVIDd: 4.22 3.9-5.3/4.2-5.9 cm LVIDd Index: 2.60 2.4-3.2/2.2-3.1 cm/m2 LVIDs: 2.45 2.0-3.6 cm LVPWd: 0.94 0.7-1.1 cm LA Diam: 4.30 2.7-3.8/3.0-4.0 cm LAIDs Index: 2.65 1.5-2.3 cm/m2 LV Mass: 204.96 67-162/88-224 g LV Mass Index: 126.52 43-95/49-115 g/m2 LVOT Diam: 1.80 3.0+(-)1.3 cm 2D Systolic Function EF 4C: 55.90 >55% EF 2C: 70.20 >55% EF BiP: 63.30 >55% Mitral Valve MV Pk E: 0.98 MV PK A: 0.32 MV Decel Time: 144.00 E/A: 3.00 E'Lateral: 12.10 E'Medial: 9.09 E/E' Med: 10.80 E/E' Lat: 8.10 PHT: 42.00 MVA PHT: 5.24 Decel [place]: 6.82 Aortic Valve AoV Pk Bear: 1.42 AoV Mn Bear: 0.98 AoV VTI: 0.34 AoV Pk Grad: 8.00 Aov Mn Grad: 4.00 CASH Cont.VTI: 1.44 LVOT LVOT Pk Bear: 0.89 LVOT Mn Bear: 0.60 LVOT VTI: 0.19 LVOT Pk Grad: 3.00 LVOT Mn Grad: 2.00 LVOT Diam: 1.80 LVOT Area: 2.54 Diastolic Function MV Pk E: 0.98 MV Pk A: 0.32 E/A: 3.00 E'Medial: 9.09 E/E' Med: 10.80 E' Laterial: 12.10 E/E' Lat: 8.10 Right Ventricle TAPSE (mm): 16.60 TVS' Bear: 10.90 Tricuspid Valve TR Pk Bear: 2.85 TR Pk Grad: 32.00 RA Press: 3.00 RVSP: 35.00 Great Vessels Aorta Sinus of Valsalva: 3.10 2.0-3.5 cm Ao Asc: 3.10 2.1-3.4 cm Pulmonary Valve PV Pk Bear: 0.84 Peak PV Grad: 3.00 Updated in Other Vendor System with Status of Final Bryan Malin MD electronically signed on 05/15/2024 10:21:03 AM with status of Final
--- OUTSIDE RECORDS SUMMARY | 2024-05-13 10:01 | XMS_ITS | Patient Health Record ---
Author Organization [facility] Address [address] [place] [address] Care Team Providers Care Unscrambler Name Role Phone Cade THACKER, Carlitos Primary Care Provider Inder Beckman Jr Unavailable [phone] ALLERGIES Allergen (clinical drug ingredient) Drug/Non Drug Allergy documented on EMR Reaction Allergy Type Onset Date Status dairy intolerant (uncoded) Unknown Allergy Active soybean oil soy brown oil (uncoded) Unknown Allergy Active Shellfish (FN) shell fish (uncoded) Unknown Allergy Active RESULTS Component Value Reference Range Notes Pathology Reviewed date:12/21/2023 07:50:57 AM Interpretation: Performing Lab:[facility], [address] [place] [phone] Notes/Report: REASON FOR REFERRAL No Information MEDICATIONS [...] Notes Problem Esophageal stricture (K22.2) Active confirmed 28521934 Problem Dysphagia, unspecified type (R13.10) Active confirmed 33413423 Problem Irritable bowel syndrome with diarrhea (K58.0) Active confirmed 492784171 Problem Dysphagia (R13.10) Active confirmed Dys phagia (49076251) Problem Acute gastric ulcer without hemorrhage or perforation (K25.3) Active confirmed 93478631 Problem Gastric polyp (K31.7) Active confirmed Gastric polyp (17832931) Problem Gastric ulcer (K25.9) Active confirmed Gastric ulcer (170790175) Problem exterminator termite (current) use of anticoagulants (Z79.01) Active confirmed 532264734 VITAL SIGNS Temperature 97.3 degrees Fahrenheit 04/04/2024 Blood pressure diastolic 00 mm Hg 04/04/2024 Height 65 in 04/04/2024 Blood pressure systolic 000 mm Hg 04/04/2024 Weight 132 lb 6 oz lbs 04/04/2024 BMI 22.03 kg/m2 04/04/2024 Encounters Encounter Location Date Provider Diagnosis [facility] [place] [address] [place] [phone] 12/16/2023 Inder Wilson Jr Dysphagia R13.10 ; Gastric polyp K31.7 and Gastric ulcer K25.9 [facility] [address] [facility] [place] [address] 11/23/2023 Inder Wilson Jr [facility] [address] [place] [address] [place] [address] 12/11/2023 Inder Wilson Jr Dysphagia, unspecified type R13.10 and Esophageal stricture K22.2 [facility] [address] [place] [address] 04/04/2024 Inder Wilson Jr Acute gastric ulcer without hemorrhage or perforation K25.3 ; Dysphagia, unspecified type R13.10 and exterminator termite (current) use of anticoagulants Z79.[address] [facility] [address] [place] [address] 12/16/2023 Inder Wilson Jr [facility] [address] [place] [address] 12/18/2023 Inder Wilson Jr ASSESSMENTS Encounter Date [...] Gastric ulcer (ICD-1 0 - K25.9) 04/04/2024 exterminator termite (current) use of anticoagulants (ICD-10 - Z79.01) [...] Name:Inder wynnenancy Rosario, 06/10/2024 09:50:00 AM, [address] [facility] , [place], [place], [phone], Insurance Providers Payer Name Payer Address Payer Phone Subscriber Number Group Number Insured Name Patient Relationship to Insured Coverage Start Date Coverage End Date MED[place]ARE OF [place] [address] [place] [address] [id number] PAULASHELTON Roy Self - patient is the insured MEDEX ATTN CLAIMS [address] [place] [address] [phone] [id number] SHELTON MITCHELL Self - patient is the [...]
--- OUTSIDE RECORDS SUMMARY | 2024-05-13 10:01 | XMS_ITS ---
Author Organization [facility] Address [address] [place] [address] Care Team Providers Care Calculus Professor Name Role Phone Carlitos Mohamud MD Primary Care Provider Unavailab gia Wilson Jr, Inder Miguel REASON FOR VISIT omeprazole MEDICATIONS Medication SIG (Take, Route, Fr equency, Duration) Notes Start Date End Date Status Omeprazole 40 MG 1 capsule 30 minutes before morning meal Orally Once a day for 30 day(s) 12/16/2023 Active Encounters Encounter Location Date Provider Diagnosis [facility] [address] [place] [phone] 12/16/2023 Inder Wilson Jr PLAN OF TREATMENT Medication Medication Name Sig Start Date Stop Date Notes Omeprazole 40 MG 1 capsule 30 minutes before morning meal Orally Once a day for 30 day(s) 12/16/2023 Next Appt Details Provider Name:Inder womack Jr, 06/10/2024 09:50:00 AM, [address] [place] [address] , [place], [place], [phone],
== END ==
LOC: HO.CARD 09:58
PROVIDERS: PCP Internal Medicine; Visit Provider Internal Medicine
DX: I48.19 Other persistent atrial fibrillation (principal); I36.1 Nonrheumatic tricuspid (valve) insufficiency; I27.20 Pulmonary hypertension, unspecified
CPT/HCPCS: 93306

== ENCOUNTER → 2024-05-13 10:01 | Outpatient (BNV) | payer MEDICARE, SELFPAY | PROVIDERS: PCP Internal Medicine; Visit Provider Internal Medicine | DX: I36.1 Nonrheumatic tricuspid (valve) insufficiency (principal); I34.0 Nonrheumatic mitral (valve) insufficiency; I51.7 Cardiomegaly; I42.2 Other hypertrophic cardiomyopathy | CPT/HCPCS: 93306 ==

== ENCOUNTER 2024-05-31 11:14 | Outpatient (REF) | payer SELFPAY ==
--- OUTSIDE RECORDS SUMMARY | 2024-05-31 12:43 | XMS_ITS ---
Author Organization [facility] Address [address] [place] [address] Care Team Providers Care Aircraft Pneudraulic Systems Mechanic Name Role Phone Cade THACKER, Carlitos Primary [...] for 30 day(s) 12/16/2023 Active Move [facility] Advance - as directed Orally once [...] W/U Status Risk SNOMED Code Notes Problem ferry terminal agent (current) use of anticoagulants (Z79.01) Active confirmed 144425927 VITAL SIGNS BMI 22.03 kg/m2 04/04/2024 Blood pressure systolic 000 mm Hg 04/04/20 24 Blood pressure diastolic 00 mm Hg 024 Height 65 in 04/04/2024 Temperature 97.3 degrees Fahrenheit 04/04/20 24 Weight 132 lb 6 oz lbs 04/04/2024 Encounters Encounter Location Date Provider Diagnosis [facility] [address] [place] [phone] 04/04/2024 Inder Wilson Jr Acute gastric ulcer without hemorrhage or perforation K25.3 ; Dysphagia, unspecified type R13.10 and nursing home (current) use of anticoagulants Z79.01 ASSESSMENTS Encounter Date Diagnosis Assessment Notes Treatment Notes Treatment Clinical Notes 04/04/2024 Acute gastric ulcer without hemorrhage or perforation (ICD-10 - K25.3) 04/04/2024 Dysphagia, unspecified type (ICD-10 - R13.10) 04/04/2024 nursing home (current) use of anticoagulants (ICD-10 - Z79.01) PLAN OF TREATMENT Future Test Test Name Order Date UPPER GI ENDOSCOPY 04/04/2024 Next Appt Details Follow Up: 1 Year, Reason: Provider Name:Inder womack Jr, 06/10/2024 09:50:00 AM, [address] [place] [address] , [place], [place], [phone],
--- OUTSIDE RECORDS SUMMARY | 2024-05-31 12:43 | XMS_ITS ---
Author Organization [facility] Address [address] [place] [address] Care Team Providers Care Hair Or Beauty Salon Manager Name Role Phone Carlitos Mohamud MD Primary Care Provider Unavailab Inder Amezquita Jr Unavailable REASON FOR VISIT appt Encounters Encounter Location Date Provider Diagnosis [facility] [address] [place] [address] 12/18/2023 Inder Wilson Jr PLAN OF TREATMENT Next Appt Details Provider Name:Inder womack Jr, 06/10/2024 09:50:00 AM, [address] [place] [address] , [place], [place], [phone],
--- OUTSIDE RECORDS SUMMARY | 2024-05-31 12:43 | XMS_ITS ---
Author Organization [facility] Address [address] [place] [address] Care Team Providers Care Director Of Bands Name Role Phone Carlitos Mohamud MD Primary Care Provider Unavailab gia Wilson Jr, Inder Miguel REASON FOR VISIT omeprazole MEDICATIONS Medication SIG (Take, Route, Fr equency, Duration) Notes Start Date End Date Status Omeprazole 40 MG 1 capsule 30 minutes before morning meal Orally Once a day for 30 day(s) 12/16/2023 Active Encounters Encounter Location Date Provider Diagnosis [facility] [address] [place] [phone] 12/16/2023 Inder Wilson Jr PLAN OF TREATMENT Medication Medication Name Sig Start Date Stop Date Notes Omeprazole 40 MG 1 capsule 30 minutes before morning meal Orally Once a day for 30 day(s) 12/16/2023 Next Appt Details Provider Name:Inder womack Jr, 06/10/2024 09:50:00 AM, [address] [place] [address] , [place], [place], [phone],
--- OUTSIDE RECORDS SUMMARY | 2024-05-31 12:44 | XMS_ITS | Patient Health Record ---
Author Organization [facility] Address [address] [place] [address] Care Team Providers Care Spa Therapist Name Role Phone Cade THACKER, Carlitos Primary [...] Pathology Reviewed date:12/21/2023 07:50:57 AM Interpretation: Performing Lab:[facility], [address] [place] [phone] Notes/Report: REASON FOR REFERRAL No Information MEDICATIONS [...] Notes Problem Esophageal stricture (K22.2) Active confirmed 42454179 Problem Dysphagia, unspecified type (R13.10) Active confirmed 24582978 Problem Irritable bowel syndrome with diarrhea (K58.0) Active confirmed 629650783 Problem Dysphagia (R13.10) Active confirmed Dys phagia (24160336) Problem Acute gastric ulcer without hemorrhage or perforation (K25.3) Active confirmed 98110835 Problem Gastric polyp (K31.7) Active confirmed Gastric polyp (98796235) Problem Gastric ulcer (K25.9) Active confirmed Gastric ulcer (378617104) Problem correction (current) use of anticoagulants (Z79.01) Active confirmed 110247032 VITAL SIGNS Temperature 97.3 degrees Fahrenheit 04/04/2024 Blood pressure diastolic 00 mm Hg 04/04/2024 Height 65 in 04/04/2024 Blood pressure systolic 000 mm Hg 04/04/2024 Weight 132 lb 6 oz lbs 04/04/2024 BMI 22.03 kg/m2 04/04/2024 Encounters Encounter Location Date Provider Diagnosis [facility] [address] [place] [phone] 12/16/2023 Inder Wilson Jr Dysphagia R13.10 ; Gastric polyp K31.7 and Gastric ulcer K25.9 [facility] [address] [facility] [place] [address] 11/23/2023 Inder Wilson Jr [facility] [address] [place] [address] [place] [address] 12/11/2023 Inder Wilson Jr Dysphagia, unspecified type R13.10 and Esophageal stricture K22.2 [facility] [address] [place] [phone] 04/04/2024 Inder Wilson Jr Acute gastric ulcer without hemorrhage or perforation K25.3 ; Dysphagia, unspecified type R13.10 and correction (current) use of anticoagulants Z79.01 [facility] [address] [place] [phone] 12/16/2023 Inder Wilson Jr [facility] [address] [place] [phone] 12/18/2023 Inder Wilson Jr ASSESSMENTS Encounter Date [...] Gastric ulcer (ICD-1 0 - K25.9) 04/04/2024 terminal supervisor (current) use of anticoagulants (ICD-10 - Z79.01) [...] Name:Inder wynnenancy Rosario, 06/10/2024 09:50:00 AM, [address] [facility] , [place], [place], [phone], Insurance Providers Payer Name Payer Address Payer Phone Subscriber Number Group Number Insured Name Patient Relationship to Insured Coverage Start Date Coverage End Date MEDICARE OF [place] [address] [place] [address] [id number] PAULASHELTON Roy Self - patient is the insured MEDEX ATTN CLAIMS [address] [place] [phone] [id number] SHELTON MITCHELL Self - patient is the [...]
== END 2024-05-31 11:15 | disposition home or self-care (01) ==
LOC: HO.HAP 11:14
PROVIDERS: Visit Provider Internal Medicine
DX: Z13.89 Encounter for screening for other disorder (principal)

== ENCOUNTER 2024-06-06 10:13 | Outpatient (AMB) | payer MEDICARE, SELFPAY ==
[2024-06-06 10:20] VITALS: BP 154/76; PULSE 56; BMI 22.6
--- NOTE | 2024-06-06 10:20 | MHC.OFFVIS ---
Vital Signs 06/06/24 10:20 Height 5 ft 4 in Weight 131 lb 6.328 oz BMI 22.6 BP 154/76 H Blood Pressure Location Lt brachial Position Sitting Pulse 56 Pulse Source Monitor Intake Visit Reasons: 1 year after echo with ekg Keel Press Operator Required: No Accompanied by: Self / Same As Patient Allergies egg [Egg] Allergy (Severe, Verified 06/03/22 11:01) DIARRHEA shellfish derived [SHELLFISH DERIVED] Allergy (Severe, Verified 06/03/22 11:01) DIARRHEA sotalol [SOTALOL] Allergy (Severe, Verified 06/03/22 11:01) CARDIAC ARREST soybean oil [Soybean Oil] Allergy (Severe, Verified 06/03/22 11:01) DIARRHEA DAIRY PRODUCTS Allergy (Severe, Uncoded 04/02/21 12:52) DIARRHEA Medication List - Last Reconciled 06/06/24 by Bryan Malin MD apixaban (Eliquis) 5 mg PO BID calcitriol 0.25 mcg PO 3XW cholecalciferol (vitamin D3) 50 mcg PO DAILY diltiazem HCl CD 240 mg PO DAILY furosemide 40 mg PO DAILY levothyroxine 25 mcg PO DAILY loperamide 2 mg PO Q6H PRN magnesium oxide 400 mg PO BID multivitamin 1 tab PO DAILY omeprazole 20 mg PO DAILY HPI Comments Details: Abby is here for follow up regarding atrial fibrillation. Previous patient of . 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 This led to cardiac arrest from which she was successfully resuscitated. Subsequently, she was briefly on hemodialysis. She had a complicated course but then eventually recovered completely. Over the last year or so, no new concerns. She states she feels fine. No cardiac symptoms. [facility] Medical History (Updated 06/06/24 @ 11:11 by Bryan Malin MD) DNR (do not resuscitate) Pulmonary hypertension Non-rheumatic tricuspid valve insufficiency Persistent atrial fibrillation Surgical History History of cholecystectomy History of prolapse of bladder History of hysterectomy History of appendectomy History of esophageal surgery Family History Father Pacemaker Atrial fibrillation Mother Atrial fibrillation Social History (Updated 06/06/24 @ 10:24 by Mechelle Jennings CMA) Alcohol intake: never Patient Tobacco Use Status: Never used Tobacco Review of Systems Const Denies chills, Denies fatigue, Denies fever(s), Denies weight gain and Denies weight loss ENT Denies dizziness Card Denies chest pain, Denies leg edema, Denies lightheadedness, Denies palpitations, Denies dyspnea on exertion, Denies orthopnea and Denies other Resp Denies cough and Denies dyspnea on exertion GI Denies hematochezia and Denies change in stool character Musc Denies abnormal gait, Denies muscle weakness, Denies numbness, Denies radiating pain into limb and Denies tingling Neuro Denies abnormal gait, Denies dizziness, Denies numbness and Denies tingling Endo Denies fatigue and Denies palpitations Physical Exam Vital Signs: Last Vital Signs Pulse 56 06/06/24 10:20 BP 154/76 H 06/06/24 10:20 BMI result Body Mass Index 22.6 Const General: comfortable and no acute distress Orientation/consciousness: patient oriented x3 HEENT Other: Unremarkable Head: Yes normal to inspection Neck Neck: Yes normal visual inspection Chest Chest palpation & inspection: normal inspection of the chest Resp Auscultation: clear to auscultation bilaterally Cardio Palpation: normal PMI Heart sounds: S1 normal heart sound present, S2 normal heart sound present, no gallops, no murmurs and no rubs GI Palpation (GI): Soft to palpation Back/Spine/Pelvis Other: unremarkable Skin General skin exam: no rashes or lesions noted Neuro General: patient oriented x3 Extrem General: Yes normal to inspection Psych Mental Status: mental status grossly normal Office Procedures EKG Details: EKG with atrial fibrillation at 56/Min; leftward axis. 20726-Gvdmbgybvrrbanmqx, Complete Assessment & Plan Assessment & Plan (1) Persistent atrial fibrillation: Code(s): I48.19 - Other persistent atrial fibrillation Category: Medical Plan: In the past, Holter with atrial fibrillation/ slow ventricular rates. Off Coreg. Continue diltiazem. Continue Eliquis. Last available creatinine is 1. We will get the most recent labs from [facility]. (2) Primary hypertension: Code(s): I10 - Essential (primary) hypertension Category: Medical Plan: Blood pressure is on the higher side in the clinic but she states that home blood pressures are much lower and only the 120s to 130s. In the past, she actually had hypotension and Coreg was stopped. No further changes made today. (3) Non-rheumatic tricuspid valve insufficiency: Comment: Moderate by echo Code(s): I36.1 - Nonrheumatic tricuspid (valve) insufficiency Category: Medical Plan: [id number] tricuspid regurgitation in the most recent echocardiogram. In the past, as much as moderate to severe. Clinically, no symptoms or signs of congestive heart failure. Coding Level of Care Code Est Pt Level 4 (12715) Diagnoses Persistent atrial fibrillation I48.19 Primary hypertension I10 Non-rheumatic tricuspid valve insufficiency I36.1 CPT Codes EKG - CPT: 47659-Jalpfahrtyndleoqd, Complete ([id number])
--- OUTSIDE RECORDS SUMMARY | 2024-06-06 11:38 | XMS_ITS ---
Author Organization [facility] Address [address] [place] [address] Care Team Providers Care Bariatric Physician Name Role Phone Cade THACKER, Carlitos Primary [...] day for 30 day(s) 12/16/2023 Active Move [facility] Advance - as directed Orally once [...] W/U Status Risk SNOMED Code Notes Problem [facility] (current) use of anticoagulants (Z79.01) Active confirmed 691319244 VITAL SIGNS BMI 22.03 kg/m2 04/04/2024 Blood pressure systolic 000 mm Hg 04/04/20 24 Blood pressure diastolic 00 mm Hg 024 Height 65 in 04/04/2024 Temperature 97.3 degrees Fahrenheit 04/04/20 24 Weight 132 lb 6 oz lbs 04/04/2024 Encounters Encounter Location Date Provider Diagnosis [facility] 10 [facility] [address] [place] [phone] 04/04/2024 Inder Wilson Jr Acute gastric ulcer without hemorrhage or perforation K25.3 ; Dysphagia, unspecified type R13.10 and [facility] (current) use of anticoagulants Z79.01 ASSESSMENTS Encounter Date Diagnosis Assessment Notes Treatment Notes Treatment Clinical Notes 04/04/2024 Acute gastric ulcer without hemorrhage or perforation (ICD-10 - K25.3) 04/04/2024 Dysphagia, unspecified type (ICD-10 - R13.10) 04/04/2024 ad terminal makeup operator (current) use of anticoagulants (ICD-10 - Z79.01) PLAN OF TREATMENT Future Test Test Name Order Date UPPER GI ENDOSCOPY 04/04/2024 Next Appt Details Follow Up: 1 Year, Reason: Provider Name:Inder womack Jr, 06/10/2024 09:50:00 AM, [address] [place] [address] , [place], [place], [phone],
--- OUTSIDE RECORDS SUMMARY | 2024-06-06 11:38 | XMS_ITS ---
Author Organization [facility] Address [address] [place] [address] Care Team Providers Care Bagging Machine Operator Name Role Phone Carlitos Mohamud MD Primary Care Provider Unavailab Inder Amezquita Jr Unavailable REASON FOR VISIT appt Encounters Encounter Location Date Provider Diagnosis [facility] [address] [place] [address] 12/18/2023 Inder Wilson Jr PLAN OF TREATMENT Next Appt Details Provider Name:Inder womack Jr, 06/10/2024 09:50:00 AM, [address] [place] [address] , [place], [place], [phone],
--- OUTSIDE RECORDS SUMMARY | 2024-06-06 11:38 | XMS_ITS | Patient Health Record ---
Author Organization [facility] Address [address] [place] [address] Care Team Providers Care Investment Director Name Role Phone Cade THACKER, Carlitos Primary [...] Pathology Reviewed date:12/21/2023 07:50:57 AM Interpretation: Performing Lab:[facility], [address] [place] [phone] Notes/Report: REASON FOR REFERRAL No Information MEDICATIONS [...] Notes Problem Esophageal stricture (K22.2) Active confirmed 85047631 Problem Dysphagia, unspecified type (R13.10) Active confirmed 02989491 Problem Irritable bowel syndrome with diarrhea (K58.0) Active confirmed 235310561 Problem Dysphagia (R13.10) Active confirmed Dys phagia (45879278) Problem Acute gastric ulcer without hemorrhage or perforation (K25.3) Active confirmed 83526659 Problem Gastric polyp (K31.7) Active confirmed Gastric polyp (06918900) Problem Gastric ulcer (K25.9) Active confirmed Gastric ulcer (624902113) Problem [facility] (current) use of anticoagulants (Z79.01) Active confirmed 293623417 VITAL SIGNS Temperature 97.3 degrees Fahrenheit 04/04/2024 Blood pressure diastolic 00 mm Hg 04/04/2024 Height 65 in 04/04/2024 Blood pressure systolic 000 mm Hg 04/04/2024 Weight 132 lb 6 oz lbs 04/04/2024 BMI 22.03 kg/m2 04/04/2024 Encounters Encounter Location Date Provider Diagnosis [facility] [place] [address] [place] [phone] 12/16/2023 Inder Wilson Jr Dysphagia R13.10 ; Gastric polyp K31.7 and Gastric ulcer K25.9 [facility] [address] [facility] [place] [address] 11/23/2023 Inder Wilson Jr [facility] [address] [place] [address] [place] [address] 12/11/2023 Inder Wilson Jr Dysphagia, unspecified type R13.10 and Esophageal stricture K22.2 [facility] [address] [place] [address] 04/04/2024 Inder Wilson Jr Acute gastric ulcer without hemorrhage or perforation K25.3 ; Dysphagia, unspecified type R13.10 and [facility] (current) use of anticoagulants Z79.01 [facility] [address] [place] [address] 12/16/2023 Inder Wilson Jr [facility] [address] [place] [phone] 12/18/2023 Inder Wilson Jr ASSESSMENTS Encounter Date [...] Gastric ulcer (ICD-1 0 - K25.9) 04/04/2024 buttermilk drier operator (current) use of anticoagulants (ICD-10 - [...] Name:Inder wynnenancy Rosario, 06/10/2024 09:50:00 AM, [address] [facility] , [place], [place], [phone], Insurance Providers Payer Name Payer Address Payer Phone Subscriber Number Group Number Insured Name Patient Relationship to Insured Coverage Start Date Coverage End Date MEDICARE OF [place] [address] [place] [address] [id number] PAULASHELTON Roy Self - patient is the insured MEDEX ATTN CLAIMS [address] [place] [address] [id number] SHELTON MITCHELL Self - patient is the [...]
--- OUTSIDE RECORDS SUMMARY | 2024-06-06 11:38 | XMS_ITS ---
Author Organization [facility] Address [address] [place] [address] Care Team Providers Care Resident Care Coordinator Name Role Phone Carlitos Mohamud MD Primary Care Provider Unavailab gia Wilson Jr, Inder Miguel REASON FOR VISIT omeprazole MEDICATIONS Medication SIG (Take, Route, Fr equency, Duration) Notes Start Date End Date Status Omeprazole 40 MG 1 capsule 30 minutes before morning meal Orally Once a day for 30 day(s) 12/16/2023 Active Encounters Encounter Location Date Provider Diagnosis [facility] [address] [place] [phone] 12/16/2023 Inder Wilson Jr PLAN OF TREATMENT Medication Medication Name Sig Start Date Stop Date Notes Omeprazole 40 MG 1 capsule 30 minutes before morning meal Orally Once a day for 30 day(s) 12/16/2023 Next Appt Details Provider Name:Inder womack Jr, 06/10/2024 09:50:00 AM, [address] [place] [address] , [place], [place], [phone],
== END 2024-06-06 10:40 | disposition home or self-care (01) ==
PROVIDERS: PCP Internal Medicine; Visit Provider Internal Medicine
DX: I48.19 Other persistent atrial fibrillation (principal); I10 Essential (primary) hypertension; I36.1 Nonrheumatic tricuspid (valve) insufficiency
CPT/HCPCS: 93010; 99214

== ENCOUNTER → 2024-06-06 10:13 | Outpatient (BNVA) | payer MEDICARE, SELFPAY | PROVIDERS: PCP Internal Medicine; Visit Provider Internal Medicine | DX: I48.19 Other persistent atrial fibrillation (principal); I10 Essential (primary) hypertension; I36.1 Nonrheumatic tricuspid (valve) insufficiency; R94.31 Abnormal electrocardiogram [ECG] [EKG] | CPT/HCPCS: 93005; 99212 ==

== ENCOUNTER 2024-06-10 08:16 | Day surgery (SDC) | payer MEDICARE, SELFPAY ==
--- OUTSIDE RECORDS SUMMARY | 2024-05-04 19:40 | XMS_ITS ---
Author Organization [facility] Address [address] [place] [address] Care Team Providers Care Supervisor Lathing Name Role Phone Carlitos Mohamud MD Primary Care Provider Unavailab Inder Amezquita Jr Unavailable [phone] REASON FOR VISIT appt Encounters Encounter Location Date Provider Diagnosis [facility] [address] [place] [address] 12/18/2023 Inder Wilson Jr PLAN OF TREATMENT Next Appt Details Provider Name:Inder womack Jr, 06/10/2024 09:50:00 AM, [address] [place] [address] , [place], [place], [phone],
--- OUTSIDE RECORDS SUMMARY | 2024-05-04 19:40 | XMS_ITS ---
Author Organization [facility] Address [address] [place] [address] Care Team Providers Care Processing Engineer Name Role Phone Carlitos Mohamud MD Primary Care Provider Unavailab gia Wilson Jr, Inder Miguel REASON FOR VISIT omeprazole MEDICATIONS Medication SIG (Take, Route, Fr equency, Duration) Notes Start Date End Date Status Omeprazole 40 MG 1 capsule 30 minutes before morning meal Orally Once a day for 30 day(s) 12/16/2023 Active Encounters Encounter Location Date Provider Diagnosis [facility] [address] [place] [address] 12/16/2023 Inder Wilson Jr PLAN OF TREATMENT Medication Medication Name Sig Start Date Stop Date Notes Omeprazole 40 MG 1 capsule 30 minutes before morning meal Orally Once a day for 30 day(s) 12/16/2023 Next Appt Details Provider Name:Inder womack Jr, 06/10/2024 09:50:00 AM, [address] [place] [address] , [place], [place], [phone],
--- OUTSIDE RECORDS SUMMARY | 2024-05-04 19:40 | XMS_ITS ---
Author Organization [facility] Address [address] [place] [address] Care Team Providers Care Penology Teacher Name Role Phone Cade THACKER, Carlitos Primary Care Provider Inder Beckman Jr Unavailable ALLERGIES Allergen (clinical drug ingredient) Drug/Non Drug Allergy documented on EMR Reaction Allergy Type Onset Date Status dairy intolerant (uncoded) Unknown Allergy Active soybean oil soy brown oil (uncoded) Unknown Allergy Active Shellfish (FN) shell fish (uncoded) Unknown Allergy Active REASON FOR VISIT Patient presents today for dysphagia MEDICATIONS Medication SIG (Take, Route, Frequency, Duration) Notes Start Date End Date Status Vitamin D3 50 MCG (1999) 1 capsule Or ally Once a week Active Omeprazole 40 MG 1 capsule 30 minutes before morning meal Orally Once a day for 30 day(s) 12/16/2023 Active Move [facility] Advance - as directed Orally once a day Active Loperamide HCl 2 MG 1 1/2 capsule as nee ded Orally daily Active Furosemide 40 MG 1 tablet Orally Once a day for 30 day(s) Active Eliquis 5 MG as directed Orally o nce a day Active Levothyroxine Sodium 25 MCG 1 tablet in the morning on an empty stomach Orally Once a day Active dilTIAZem HCl ER Beads 240 MG 1 capsule Orally Once a day for 30 day(s) Active Magnesium Oxide 400 MG 1 tablet Orally t wice a day Active Calcitriol 0.25 MCG 1 capsule Orally thr ee x a week Active Lactaid 3000 UNIT 1 tablet with first bite of dairy - containing food Orally Once a day for 30 day(s) Active Glucosamine 500 MG 1 capsule with a alvin l Orally Three times a day for 30 day(s) Active Tylenol Extra Strength 500 MG 1 tablet as needed Orally every 6 hrs Active Multi For Her - as directed Orally Active SOCIAL HISTORY Tobacco Use: Social History Observation Description Date Details (start date - stop date) Never Smoker NA - NA Sex Assigned At : Social History Observation Description Sex Assigned At Unknown Tobacco Use/Smoking Question Answer Notes Patient is a nonsmoker Alcohol Screen Question Answer Notes Did you have a drink contain ing alcohol in the past year? Yes How often did you have a dri nk containing alcohol in the past year? Monthly or less (1 point) How many drinks did you have on a typical day when you were drinking in the past year? 1 or 2 drinks (0 point) How often did you have 6 or more drinks on one occasion in the past year? Never (0 point) Points 1 Interpretation Negative PROBLEMS Problem Type ICD Code Onset Dates Problem Status W/U Status Risk SNOMED Code Notes Problem rat exterminator (current) use of anticoagulants (Z79.01) Active confirmed 529993122 VITAL SIGNS BMI 22.03 kg/m2 04/04/2024 Blood pressure systolic 000 mm Hg 04/04/20 24 Blood pressure diastolic 00 mm Hg 024 Height 65 in 04/04/2024 Temperature 97.3 degrees Fahrenheit 04/04/20 24 Weight 132 lb 6 oz lbs 04/04/2024 Encounters Encounter Location Date Provider Diagnosis [facility] [address] [facility] [address] [place] [address] 04/04/2024 Inder Wilson Jr Acute gastric ulcer without hemorrhage or perforation K25.3 ; Dysphagia, unspecified type R13.10 and snf (current) use of anticoagulants Z79.01 ASSESSMENTS Encounter Date Diagnosis Assessment Notes Treatment Notes Treatment Clinical Notes 04/04/2024 Acute gastric ulcer without hemorrhage or perforation (ICD-10 - K25.3) 04/04/2024 Dysphagia, unspecified type (ICD-10 - R13.10) 04/04/2024 rat exterminator (current) use of anticoagulants (ICD-10 - Z79.01) PLAN OF TREATMENT Future Test Test Name Order Date UPPER GI ENDOSCOPY 04/04/2024 Next Appt Details Follow Up: 1 Year, Reason: Provider Name:Inder womack Jr, 06/10/2024 09:50:00 AM, [address] [place] [address] , [place], [place], [phone],
--- OUTSIDE RECORDS SUMMARY | 2024-05-04 19:41 | XMS_ITS | Patient Health Record ---
Author Organization [facility] Address [address] [place] [address] Care Team Providers Care Welding Inspector Name Role Phone Cade THACKER, Carlitos Primary Care Provider Inder Beckman Jr Unavailable [phone] ALLERGIES Allergen (clinical drug ingredient) Drug/Non Drug Allergy documented on EMR Reaction Allergy Type Onset Date Status dairy intolerant (uncoded) Unknown Allergy Active soybean oil soy brown oil (uncoded) Unknown Allergy Active Shellfish (FN) shell fish (uncoded) Unknown Allergy Active RESULTS Component Value Reference Range Notes Pathology Reviewed date:12/21/2023 07:50:57 AM Interpretation: Performing Lab:[facility], [address] [place] [phone] Notes/Report: REASON FOR REFERRAL No Information MEDICATIONS Medication SIG (Take, Route, Frequency, Duration) Notes Start Date End Date Status Magnesium Oxide 400 MG 1 tablet Orally t wice a day Active Calcitriol 0.25 MCG 1 capsule Orally thr ee x a week Active Lactaid 3000 UNIT 1 tablet with first bite of dairy - containing food Orally Once a day for 30 day(s) Active Vitamin D3 50 MCG (1999 [place]) 1 capsule Or ally Once a week Active Glucosamine 500 MG 1 capsule with a alvin l Orally Three times a day for 30 day(s) Active Omeprazole 40 MG 1 capsule 30 minutes before morning meal Orally Once a day for 30 day(s) 12/16/2023 Active Move [facility] Advance - as directed Orally once a day Active Tylenol Extra Strength 500 MG 1 tablet as needed Orally every 6 hrs Active Loperamide HCl 2 MG 1 1/2 capsule as nee ded Orally daily Active Eliquis 5 MG as directed Orally o nce a day Active Levothyroxine Sodium 25 MCG 1 tablet in the morning on an empty stomach Orally Once a day Active Multi For Her - as directed Orally Active dilTIAZem HCl ER Beads 240 MG 1 capsule Orally Once a day for 30 day(s) Active Furosemide 40 MG 1 tablet Orally Once a day for 30 day(s) Active IMMUNIZATIONS Vaccine Route Administration Date Status Comme nts Influenza Unknown 2019 Administered Influenza Unknown 04/24/2022 Administered Influenza Unknown 03/29/2024 Administered SOCIAL HISTORY Tobacco Use: Social History Observation [...] W/U Status Risk SNOMED Code Notes Problem Esophageal stricture (K22.2) Active confirmed 98571646 Problem Dysphagia, unspecified type (R13.10) Active confirmed 84825245 Problem Irritable bowel syndrome with diarrhea (K58.0) Active confirmed 072885244 Problem Dysphagia (R13.10) Active confirmed Dys phagia (82908756) Problem Acute gastric ulcer without hemorrhage or perforation (K25.3) Active confirmed 69363215 Problem Gastric polyp (K31.7) Active confirmed Gastric polyp (93583935) Problem Gastric ulcer (K25.9) Active confirmed Gastric ulcer (178819008) Problem long term acute care registered nurse (current) use of anticoagulants (Z79.01) Active confirmed 027697295 VITAL SIGNS Temperature 97.3 degrees Fahrenheit 04/04/2024 Blood pressure diastolic 00 mm Hg 04/04/2024 Height 65 in 04/04/2024 Blood pressure systolic 000 mm Hg 04/04/2024 Weight 132 lb 6 oz lbs 04/04/2024 BMI 22.03 kg/m2 04/04/2024 Encounters Encounter Location Date Provider Diagnosis [facility] [place] [address] [place] [phone] 12/16/2023 Inder Wilson Jr Dysphagia R13.10 ; Gastric polyp K31.7 and Gastric ulcer K25.9 [facility] [address] [facility] [place] [address] 11/23/2023 Inder Wilson Jr [facility] [address] [place] [address] [place] [address] 12/11/2023 Inder Wilson Jr Dysphagia, unspecified type R13.10 and Esophageal stricture K22.2 [facility] [address] [place] [phone] 04/04/2024 Inder Wilson Jr Acute gastric ulcer without hemorrhage or perforation K25.3 ; Dysphagia, unspecified type R13.10 and long term acute care registered nurse (current) use of anticoagulants Z79.01 [facility] [address] [place] [address] 12/16/2023 Inder Wilson Jr [facility] [address] [place] [address] 12/18/2023 Inder Wilson Jr ASSESSMENTS Encounter Date Diagnosis Assessment Notes Treatment Notes Treatment Clinical Notes 12/16/2023 Dysphagia (ICD-10 - R13.10) 12/16/2023 Gastric polyp (ICD-1 0 - K31.7) 12/11/2023 Esophageal stricture (ICD-10 - K22.2) 12/11/2023 Dysphagia, unspecified type (ICD-10 - R13.10) Endoscopy material was printed 04/04/2024 Acute gastric ulcer without hemorrhage or perforation (ICD-10 - K25.3) 04/04/2024 Dysphagia, unspecified type (ICD-10 - R13.10) 12/16/2023 Gastric ulcer (ICD-1 0 - K25.9) 04/04/2024 long term acute care registered nurse (current) use of anticoagulants (ICD-10 - Z79.01) PLAN OF TREATMENT Pending Test Test Name Order Date XR GI SERIES 08/28/2022 Future Test Test Name Order Date UPPER GI ENDOSCOPY BALLOOON DILATION OF ESOPH 04/06/2019 UPPER GI ENDOSCOPY BALLOOON DILATION OF ESOPH 04/30/2022 UPPER GI ENDOSCOPY BALLOOON DILATION OF ESOPH 12/11/2023 UPPER GI ENDOSCOPY 04/04/2024 Next Appt Details Provider Name:Inder wynnenancy Rosario, 06/10/2024 09:50:00 AM, [address] [facility] , [place], [place], [phone], Insurance Providers Payer Name Payer Address Payer Phone Subscriber Number Group Number Insured Name Patient Relationship to Insured Coverage Start Date Coverage End Date MEDICARE OF [place] [address] [place] [address] [id number] PAULASHELTON Roy Self - patient is the insured MEDEX ATTN CLAIMS [address] [place] [address] [id number] SHELTON MITCHELL Self - patient is the insured MEDICAL (GENERAL) HISTORY Medical History History ICD Code Atrial fibrillation hypertension 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 Balloon dilation for dysphagia Surgical History Surgery Date(Month/Year) fistula repair 1961 appendectomy 1963 partial hysterectomy 1979 cholecystectomy 2012 ? prolapse bladder 2011 ? laser surgeries on eyes
[2024-06-08 13:40] VITALS: BMI 22.5
--- NOTE | 2024-06-09 12:23 | P.CONAN_ITS ---
Documented by User: Alessandra Sutton NP 06/09/24 12:24 HPI - Anesthesia Eval Consult details Narrative: 83yo F for Upper Endoscopy s/p same 11/2023 with TIVA Eliquis for afib 2013, she had torsade/ventricular tachycardia related to sotalol. This led to cardiac arrest from which she was successfully resuscitated. Subsequently, she was briefly on hemodialysis. She had a complicated course but then eventually recovered completely. [place] [facility]. Stable at routine visit 05/2024 [facility] Active Problems Active Problems: All Active Problems Primary hypertension (Acute) Arterial hypotension (Acute) Persistent atrial fibrillation (Acute) Past Medical History Medical History Dysphagia IBS (irritable bowel syndrome) Cardiac arrest HTN (hypertension) DNR (do not resuscitate) Pulmonary hypertension Non-rheumatic tricuspid valve insufficiency Persistent atrial fibrillation Family History Family History Father Pacemaker Atrial fibrillation Mother Atrial fibrillation Family history of problems with anesthesia: No Surgical History Surgical History History of esophagogastroduodenoscopy (EGD) History of cholecystectomy History of prolapse of bladder History of hysterectomy History of appendectomy History of esophageal surgery History of Problems with Anesthesia: No Social History Social History Household Members: Spouse Household Members Other:: lives in in law apt. at son's house Are you a primary manager medicare marketing to a significant other at home: No Do you presently have visiting nurse or other home services: No Alcohol intake: never Comment: uses cane for long distances Patient Tobacco Use Status: Never used Tobacco Have you been hit, kicked, punched, or otherwise hurt by someone within the past year? If so, by whom?: No Are you DNR?: No Advance Directives: No Advance Directives Information Provided: Yes Recently lost weight without trying: No Nutrition Risks: No Nutritional Risk Meds Allergies Allergy/AdvReac Type Severity Reaction Status Date / Time egg [Egg] Allergy Severe DIARRHEA Verified 06/10/24 08:32 lactose Allergy Severe Diarrhea Verified 06/10/24 08:32 shellfish derived Allergy Severe DIARRHEA Verified 06/10/24 08:32 [SHELLFISH DERIVED] sotalol [SOTALOL] Allergy Severe CARDIAC Verified 06/10/24 08:32 ARREST soybean oil [Soybean Oil] Allergy Severe DIARRHEA Verified 06/10/24 08:32 Home Medications ?Medication ?Instructions ?Recorded ?Confirmed ?Last Taken ?Type calcitriol 0.25 mcg capsule 0.25 mcg PO 3XW 10/15/20 06/08/24 Unknown History cholecalciferol (vitamin D3) 50 50 mcg PO DAILY 10/15/20 06/08/24 Unknown History mcg (2,000 unit) capsule furosemide 40 mg tablet 40 mg PO DAILY 10/15/20 06/08/24 Unknown History loperamide 2 mg capsule 2 mg PO Q6H PRN Diarrhea 10/15/20 06/08/24 Unknown History magnesium oxide 400 mg PO BID 10/15/20 06/08/24 Unknown History multivitamin 1 tab PO DAILY 10/15/20 06/08/24 Unknown History omeprazole 20 mg capsule,delayed 20 mg PO DAILY 10/15/20 06/08/24 12/16/23 History release diltiazem HCl 240 mg 240 mg PO DAILY 06/04/23 06/08/24 12/16/23 History capsule,extended release 24 hr levothyroxine 25 mcg tablet 25 mcg PO DAILY 06/06/24 06/08/24 Unknown History Exam Height,Weight and Vital Signs: Height 5 ft 4 in Weight 59.421 kg Narrative Narrative: EKG 05/2024 EKG Details: EKG with atrial fibrillation at 56/Min; leftward axis. ECHO 2020 Conclusions: - The left ventricular systolic function is normal. The calculated ejection fraction is 68% by biplane method. - Mild biatrial enlargement. - There is mild mitral valve regurgitation. - There is moderate tricuspid valve regurgitation. - Mild pulmonary hypertension is present. Assessment and Plan Assessment Anesthesia Assessment: Chart Reviewed Final Anesthetic Review Family History of Problems with Anesthesia: No History of Problems with Anesthesia: No Documented by User: Lali Rodriguez MD 06/10/24 09:52 [facility] Past Medical History Medical History Dysphagia IBS (irritable bowel syndrome) Cardiac arrest HTN (hypertension) DNR (do not resuscitate) Pulmonary hypertension Non-rheumatic tricuspid valve insufficiency Persistent atrial fibrillation Family History Family History Father Pacemaker Atrial fibrillation Mother Atrial fibrillation Surgical History Surgical History History of esophagogastroduodenoscopy (EGD) History of cholecystectomy History of prolapse of bladder History of hysterectomy History of appendectomy History of esophageal surgery Social History Social History Household Members: Spouse Household Members Other:: lives in in law apt. at son's house Are you a primary manager medicare marketing to a significant other at home: No Do you presently have visiting nurse or other home services: No Alcohol intake: never Comment: uses cane for long distances Patient Tobacco Use Status: Never used Tobacco Have you been hit, kicked, punched, or otherwise hurt by someone within the past year? If so, by whom?: No Are you DNR?: No Advance Directives: No Advance Directives Information Provided: Yes Recently lost weight without trying: No Nutrition Risks: No Nutritional Risk Meds Allergies Allergy/AdvReac Type Severity Reaction Status Date / Time egg [Egg] Allergy Severe DIARRHEA Verified 06/10/24 08:32 lactose Allergy Severe Diarrhea Verified 06/10/24 08:32 shellfish derived Allergy Severe DIARRHEA Verified 06/10/24 08:32 [SHELLFISH DERIVED] sotalol [SOTALOL] Allergy Severe CARDIAC Verified 06/10/24 08:32 ARREST soybean oil [Soybean Oil] Allergy Severe DIARRHEA Verified 06/10/24 08:32 Home Medications ?Medication ?Instructions ?Recorded ?Confirmed ?Last Taken ?Type calcitriol 0.25 mcg capsule 0.25 mcg PO 3XW 10/15/20 06/08/24 Unknown History cholecalciferol (vitamin D3) 50 50 mcg PO DAILY 10/15/20 06/08/24 Unknown History mcg (2,000 unit) capsule furosemide 40 mg tablet 40 mg PO DAILY 10/15/20 06/08/24 Unknown History loperamide 2 mg capsule 2 mg PO Q6H PRN Diarrhea 10/15/20 06/08/24 Unknown History magnesium oxide 400 mg PO BID 10/15/20 06/08/24 Unknown History multivitamin 1 tab PO DAILY 10/15/20 06/08/24 Unknown History omeprazole 20 mg capsule,delayed 20 mg PO DAILY 10/15/20 06/08/24 12/16/23 History release diltiazem HCl 240 mg 240 mg PO DAILY 06/04/23 06/08/24 12/16/23 History capsule,extended release 24 hr levothyroxine 25 mcg tablet 25 mcg PO DAILY 06/06/24 06/08/24 Unknown History Exam Airway Mallampati Class: II TM Dist: <=3cm Neck ROM: Limited Heart: RRR Lungs: CTA Assessment and Plan Assessment Anesthesia Assessment: Anesthesia Plan Discussed Final Anesthetic Review NPO: Yes ASA Class: III Final Preanesthetic Review: No Changes in Pt Med Stat, Meds/Allgs Chart Reviewed, Consent Obtained/Reviewed, Anes Risks/Benef Reviewed and DNR Form (If Appl.) (REVERSED) Patient Risk: Intermediate Procedure Risk: Low Anesthetic Plan Anesthetic Plan: MAC: Disposition: Standard PACU
[2024-06-10 08:31] VITALS: BMI 22.5
[2024-06-10] MEDS: Lactated Ringers 1,000 ML 100 ML IVCONT (08:39)
[2024-06-10 08:46] VITALS: BP 168/84; PULSE 63; RESP 18; TEMP 36.7; O2SAT 96
--- NOTE | 2024-06-10 08:47 | PC.NURSE ---
Dr. Wilson updated that patient last dose of Eliquis was 2 days ago. Okay to proceed.
--- NOTE | 2024-06-10 09:56 | MHC.SHP ---
Pre-Procedural Eval Section A - 24 Hr Update-Section A only Date of Service: 06/10/24 Section B - Complete if H&P > 30 days Chief Complaint: Acute gastric ulcer without hemorrhage Details of Present Illness: see H&P no changes Relevant Family History (Specify if Yes): No Relevant Social History: None Present Medications: see Short Stay Collaborative assessment Medical History: No relevant PMH History of Previous Operations: No relevant previous surgery Allergies: Allergies Allergy/AdvReac Type Severity Reaction Status Date / Time egg [Egg] Allergy Severe DIARRHEA Verified 06/10/24 08:32 lactose Allergy Severe Diarrhea Verified 06/10/24 08:32 shellfish derived Allergy Severe DIARRHEA Verified 06/10/24 08:32 [SHELLFISH DERIVED] sotalol [SOTALOL] Allergy Severe CARDIAC Verified 06/10/24 08:32 ARREST soybean oil [Soybean Oil] Allergy Severe DIARRHEA Verified 06/10/24 08:32 Review of Systems Sugical H&P ROS: Negative: Constitution, Cardiovascular, Respiratory, Neurological, Psychiatric, Hem-Onc, Allergic/Immunologic, Gastrointestinal, Genitourinary, Musculoskeletal, Integumentary, Endocrine and Eyes/Ears/Nose/Throat Exam Surgical H&P Exam: Normal: HEENT, Normal: Heart, Normal: Lungs, Normal: Extremities, Normal: Abdomen, Normal: Skin and Normal: Neurological Plan Diagnosis/Plan: Unchanged I have reviewed the history and physical and performed a pertinent physical examination on my patient. No changes have occurred unless specified. Time Spent With Patient Time: Total time managing care of this patient today ____ minutes.
[2024-06-10 10:20] VITALS: BP 133/58; PULSE 57; RESP 18; TEMP 36.3; O2SAT 95
[2024-06-10 10:35] VITALS: BP 132/71; PULSE 68; RESP 18; TEMP 36.4; O2SAT 96
--- NOTE | 2024-06-10 10:55 | OP_ITS ---
DATE OF SERVICE: 06/10/2024 SURGEON: Inder Wilson MD INDICATIONS: Dysphagia and gastric ulcer. PREOPERATIVE DIAGNOSIS: POSTOPERATIVE DIAGNOSIS: PROCEDURE PERFORMED: Upper endoscopy with balloon dilation and biopsy. ESTIMATED BLOOD LOSS: COMPLICATIONS: ANESTHESIA: ASSISTANTS: SPECIMENS: CURRENT MEDICATIONS: Monitored anesthesia care. DESCRIPTION OF PROCEDURE: A history and physical was performed. The risks and benefits of the procedure were explained to the patient and informed consent was obtained. The patient was placed in the left lateral decubitus position. The Olympus video gastroscope was introduced into the esophagus, stomach, and duodenum. Examination was performed and the scope was removed. She tolerated the procedure well and was returned to recovery area in stable condition. FINDINGS: Esophagus: The esophagus was tortuous. No stricture was identified. The EG junction appeared normal. Balloon dilation to 20 mm was performed for 60 seconds x2 inflations with no immediate complications. Stomach: The stomach showed no evidence of masses or ulcers. There were multiple benign-appearing gastric polyps, which had been identified in the fundus and body on previous examinations consistent with fundic gland polyps. These were not biopsied. In the antrum, was a 6 to 7 mm superficial ulcer on the posterior wall approximately 3 cm from the pylorus. This appeared benign. Biopsies were obtained from the ulcer. Duodenum: The bulb and 2nd portion were normal. IMPRESSION: 1. Gastric ulcer. 2. Dysphagia. RECOMMENDATION: Follow up the biopsy results. MD GISEL Lopez/CADEN / [id number]
--- NOTE | 2024-06-10 11:07 | P.BOP_ITS ---
Brief Operative Note Date of Service: 06/10/24 Pre-op diagnosis: gerd dysphagia Post-op diagnosis: same Procedure: egd Surgeon: Inder Wilson MD Anesthesia: MAC Was an Fire Protection Engineer used for this Procedure?: No Estimated blood loss (mL): 0 Pathology: none sent Condition: stable Disposition: PACU
== END 2024-06-10 11:16 | disposition home or self-care (01) ==
PROVIDERS: PCP Internal Medicine; Visit Provider Internal Medicine Gastroenterology
PROC: 0DJ08ZZ Inspection of Upper Intestinal Tract, Via Natural or Artificial Opening Endoscopic (ICD-10-PCS; CPT 43235; principal; 2024-06-10 09:50)
DX: R13.10 Dysphagia, unspecified (principal); K22.4 Dyskinesia of esophagus; K25.3 Acute gastric ulcer without hemorrhage or perforation; K31.7 Polyp of stomach and duodenum; K58.0 Irritable bowel syndrome with diarrhea; I48.91 Unspecified atrial fibrillation; I10 Essential (primary) hypertension; I27.20 Pulmonary hypertension, unspecified; Z86.74 Personal history of sudden cardiac arrest; Z86.79 Personal history of other diseases of the circulatory system; Z79.01 Long term (current) use of anticoagulants; Z79.899 Other long term (current) drug therapy; Z66 Do not resuscitate; Z88.8 Allergy status to other drugs, medicaments and biological substances; Z91.012 Allergy to eggs; Z91.018 Allergy to other foods; E73.9 Lactose intolerance, unspecified; Z98.890 Other specified postprocedural states
CPT/HCPCS: 43249; 43239; 88305; 88342; C1726; J2003; J2704

== ENCOUNTER 2024-08-31 10:52 | Outpatient (REF) | payer MEDICARE, SELFPAY ==
--- OUTSIDE RECORDS SUMMARY | 2024-08-31 12:42 | XMS_ITS | Clinical Summary ---
Author Organization [facility] Address [address] [place] [address] Care Team Providers Care Building Carpenter Name Role Phone Unavailable Primary Care Provider Unavailabl e Allergies Active Allergy Reactions Criticality Noted Date Comments Sotalol Other (see comments) 02/06/2021 Medications apixaban (ELIQUIS) 5 MG tablet Take 1 tablet by mouth 2 (two) times a day Active dilTIAZem CD (CARDIZEM CD) 240 MG 24 hr capsule Take 1 capsule by mouth 1 (one) time each day Active furosemide (LASIX) 20 MG tablet Take 1 tablet by mouth 1 (one) time each day Active levothyroxine (SYNTHROID, LEVOTHROID) 25 MCG tablet Take 1 tablet by mouth Active Magnesium Oxide 400 MG capsule Take 1 capsule by mouth 2 (two) times a day 06/15/2014 Active acetaminophen (TYLENOL) 500 MG tablet Take by mouth every 6 (six) hours if needed for mild pain Active omeprazole (PriLOSEC) [address] capsule Take 40 mg by mouth 1 (one) time each day 01/15/2024 Active Active Problems Problem Noted Date Diagnosed Date Stage 3a chronic kidney disease 02/07/2021 Acute nontraumatic kidney injury 02/06/2021 Anemia of chronic renal failure 02/06/2021 Chronic kidney disease stage 3 02/06/2021 Essential hypertension 02/06/2021 Resolved Problems Problem Noted Date Diagnosed Date Resolved Date Anemia of chronic disease 02/06/2021 Immunizations Name Administration Dates Next Due Pneumococcal Polysaccharide 05/02/2014 Family History Medical History Relation Comments Heart disease Father Hypertension Father Heart disease Mother Hypertension Mother Hypertension Sibling 1 Heart disease Sibling 2 Relation Status Comments Father Mother Sibling 1 Sibling 2 Social History Tobacco Use Types Packs/Day Years Used Date Smoking Tobacco: Never Smokeless Tobacco: Never Alcohol Use Standard Drinks/Week Comments No 0 (1 standard drink = 0.6 oz pur e alcohol) Comments Unknown Sex and Gender Information Value Date Recorded Sex Assigned at Not on file Legal Sex Female 5:10 PM EST Gender Identity Not on file Sexual Orientation Not on file Last Filed Vital Signs Vital Sign Reading Time Taken Comments Blood Pressure 116/60 02/04/2024 1:10 PM EDT Pulse 76 02/04/2024 1:10 PM EDT Temperature - - Respiratory Rate - - Oxygen Saturation 98% 02/04/2024 1:10 PM EDT Inhaled Oxygen Concentration - - Weight 59.7 kg (131 lb 9.6 oz) 02/04/2024 1:10 P M EDT Height 165.1 cm (5' 5 ) 04/12/2020 12:00 PM EST Body Mass Index 21.9 04/12/2020 12:00 PM EST Plan of Treatment Health Maintenance Due Date Last Done Comments Pneumococcal Vaccine: 65+ Ye ars (2 of 2 - PCV) 05/02/2015 05/02/2014 Influenza Vaccine (Season Ended) 2025 Hepatitis B Vaccine Aged Out No longe r eligible based on patient's age to complete this topic [place] [address] [place] [address] [place] [address] MEDICARE
--- OUTSIDE RECORDS SUMMARY | 2024-08-31 12:42 | XMS_ITS ---
Author Organization [facility] Address [address] [place] [address] Care Team Providers Care Copyholder Name Role Phone Cade THACKER, Carlitos Primary Care Provider Inder Beckman Jr Unavailable [phone] Allergies Allergen (clinical drug ingredient) Drug/Non Drug Allergy documented on EMR Reaction Allergy Type Onset Date Status dairy intolerant (uncoded) Unknown Allergy Active soybean oil soy brown oil (uncoded) Unknown Allergy Active Shellfish (FN) shell fish (uncoded) Unknown Allergy Active REASON FOR VISIT Patient presents today for dysphagia Medications Medication SIG (Take, Route, Frequency, Duration) Notes Start Date End Date Status Vitamin D3 50 MCG (1999) 1 capsule Or ally Once a week Active Omeprazole 40 MG 1 capsule 30 minutes before morning meal Orally Once a day for 30 day(s) 12/16/2023 Active Move [facility] Advance - as directed Orally once [...] For Her - as directed Orally Active Social History Tobacco Use: Social History Observation Description Date Details (start date - stop date) Never Smoker NA - NA Tobacco Use/Smoking Question Answer Notes Patient is [...] Never (0 point) Points 1 Interpretation Negative Problems Problem Type SNOMED Code ICD Code Onset Dates Problem Status W/U Status Risk Notes Problem 675213807 assisted (curre nt) use of anticoagulants (Z79.01) Active confirmed Vital Signs Temperature 97.3 degrees Fahrenheit 04/04/20 24 Blood pressure systolic 000 mm Hg 04/04/20 24 Blood pressure diastolic 00 mm Hg 024 Height 65 in 04/04/2024 Weight 132 lb 6 oz lbs 04/04/2024 BMI 22.03 kg/m2 04/04/2024 Encounters Encounter Location Date Provider Diagnosis [facility] [address] [facility] [address] [place] [phone] 04/04/2024 Inder Wilson Jr Acute gastric ulcer without hemorrhage or perforation K25.3 ; Dysphagia, unspecified type R13.10 and assisted (current) use of anticoagulants Z79.01 Assessments Encounter Date Diagnosis (ICD Code) Assessment Notes Treatment Notes Treatment Clinical Notes Section Notes 04/04/2024 Acute gastric ulcer without hemorrhage or perforation (ICD-10 - K25.3) We discussed peptic ulcer disease today. We discussed her symptoms. She appears comfortable following her dilation. She can use glob-tzk-ohcbg er antacids as needed for her reflux symptoms in addition to her higher dose of omeprazole. Followup endoscopy because of her antral ulcers will be arranged. She is aware risks and benefits and agrees to proceed. She will stop Eliquis 3 days before the procedure 04/04/2024 Dysphagia, unspecified type (ICD-10 - R13.10) We discussed peptic ulcer disease today. We discussed her symptoms. She appears comfortable following her dilation. She can use ssrc-hpt-hqvdl er antacids as needed for her reflux symptoms in addition to her higher dose of omeprazole. Followup endoscopy because of her antral ulcers will be arranged. She is aware risks and benefits and agrees to proceed. She will stop Eliquis 3 days before the procedure 04/04/2024 assisted (current) use of anticoagulants (ICD-10 - Z79.01) We discussed peptic ulcer disease today. We discussed her symptoms. She appears comfortable following her dilation. She can use tgdj-nbp-wunps er antacids as needed for her reflux symptoms in addition to her higher dose of omeprazole. Followup endoscopy because of her antral ulcers will be arranged. She is aware risks and benefits and agrees to proceed. She will stop Eliquis 3 days before the procedure Plan Of Treatment Future Test Test Name Order Date UPPER GI ENDOSCOPY 04/04/2024 Next Appt Details Follow Up: 1 Year, Reason: Progress Notes * ABBY MITCHELL ADOB:1940 (84 yo F)Acc No.[id number]:04/04/2024 Progress Notes Patient:?ABBY MITCHELL A Provider:?Inder Wilson MD :1940???Age:84 Y???Sex:Female D ate:04/04/2024 Address:[address] [place] [address], [id number] Pcp:Carlitos Mohamud MD Subjective: * Chief Complaints: * ???1. Patient presents today for dysphagia. * HPI: ???New symptom(s):? Abby is a pleasant 84-year-old woman seen today in followup of dysphagia. She underwent upper endoscopy in November. This showed a gastric ulcer, and her omeprazole was increased to 40 mg daily. She still gets some dysphagia to pills and starchy foods. Evaluation seemed to help her symptoms. She had esophageal burning after the procedure. 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 Balloon dilation for dysphagia. * Surgical History:?fistula re pair 1961, appendectomy 1962, partial hysterectomy 1979, cholecystectomy 2012 ?, prolapse bladder 2011 ?, laser surgeries on eyes . * Family History:?Father: dece ased.?Mother: , diagnosed with Heart disease, HTN (hypertension).?Siblings: alive, sister with colon polyps and also dx with colon cancer at age 82, brother has a hystory of colon polyps., diagnosed with Colon cancer, Colon polyps.? No family history of colon cancer or liver cancer. * Social History:?Tobacco Use:?Tobacco Use/Smoking?Patient is a?nonsmoker.?Drugs/Alcohol:?Alcohol Screen?Did you have a drink containing alcohol in the past year??Yes,?How often did you have a drink containing alcohol in the past year??Monthly or less (1 point), How many drinks did you have on a typical day when you were drinking in the past year??1 or 2 drinks (0 point),?How often did you have 6 or more drinks on one occasion in the past year??Never (0 point),?Points?1,?Interpretation?Negative.?Miscellaneous:?Marital status: . Occupation: retired teacher. * Medications:?Taking Tylenol Extra Strength 500 MG Tablet 1 tablet as needed Orally every 6 hrs, Taking Lactaid 3000 UNIT Tablet 1 tablet with first bite of dairy - containing food Orally Once a day, Taking Glucosamine 500 MG Capsule 1 capsule with a meal Orally Three times a day, Taking Multi For Her - Tablet as directed Orally , Taking dilTIAZem HCl ER Beads 240 MG Capsule Extended Release 24 Hour 1 capsule Orally Once a day, Taking Eliquis 5 MG Tablet as directed Orally once a day, Taking Levothyroxine Sodium 25 MCG Tablet 1 tablet in the morning on an empty stomach Orally Once a day, Taking Magnesium Oxide 400 MG Tablet 1 tablet Orally twice a day, Taking Calcitriol 0.25 MCG Capsule 1 capsule Orally three x a week, Taking Furosemide 40 MG Tablet 1 tablet Orally Once a day, Taking Move [facility] Advance - Tablet as directed Orally once a day, Taking Loperamide HCl 2 MG Capsule 1 1/2 capsule as needed Orally daily, Taking Vitamin D3 50 MCG (2000 UT) Capsule 1 capsule Orally Once a week, Taking Omeprazole 40 MG Capsule Delayed Release 1 capsule 30 minutes before morning meal Orally Once a day, Medication List reviewed and reconciled with the patient * Allergies:?Shell Fish, Soy B analia Oil, Dairy Intolerant. Objective: * Vitals:?Wt: 132 lb 6 oz, Ht: 65 in, BMI:22.03 Index, BP: 000/00 mm Hg, Temp: 97.3. * Examination: ???General Examination: ???On examination today, she appears comfortable. Skin is anicteric. Lungs are clear. Heart shows a regular rate and rhythm. Abdomen is soft no focal masses or tenderness. Extremities are without edema. Assessment: * Assessment: 1.?Acute gastric ulcer witho ut hemorrhage or perforation - K25.3 (Primary)?2.?Dysphagia, unspecified type - R13.10?3.?middle or intermediate school principal (current) use of anticoagulants - Z79.01? We discussed peptic ulcer di sease today. We discussed her symptoms. She appears comfortable following her dilation. She can use yxmp-gfk-dbjqvwv antacids as needed for her reflux symptoms in addition to her higher dose of omeprazole. Followup endoscopy because of her antral ulcers will be arranged. She is aware risks and benefits and agrees to proceed. She will stop Eliquis 3 days before the procedure. Plan: * Treatment: * Procedure Codes:?G9903 Pt sc rn tbco id as non user, G9744 PATIENT NOT ELIG D/T ACTIVE DX HTN * Preventive Medicine:? ??Urinary Incontinence:?Urinary Incontinence?Assessment:?Absent,?Plan of care documented:?No, reason not specified.? ??Screenings:?Fall Risk Screening?Fall Risk Assessment:?No falls in the past year,?Screening:?No falls in the past year,?Assessment:?Not performed, no reason specified,?Plan of Care:?Not documented, no reason specified.? * Follow Up:?1 Year * * Sign off status: Completed true * Provider:?Inder Wilson MD Date:?06/04/2023 Generated for Cassidy rob/Raul/eTbolivarsmitting on:?08/31/2024 12:42 PM EDT History and Physical Notes * HPI (History of Present Illness) Category Sub-Category Detail Notes Category Not es New symptom(s) Abby is a pl easant 84-year-old woman seen today in followup of dysphagia. She underwent upper endoscopy in November. This showed a gastric ulcer, and her omeprazole was increased to 40 mg daily. She still gets some dysphagia to pills and starchy foods. Evaluation seemed to help her symptoms. She had esophageal burning after the procedure. Examination Category Sub-Category Detail Notes Category Not es General Examination On exami nation today, she appears comfortable. Skin is anicteric. Lungs are clear. Heart shows a regular rate and rhythm. Abdomen is soft no focal masses or tenderness. Extremities are without edema.
--- OUTSIDE RECORDS SUMMARY | 2024-08-31 12:42 | XMS_ITS | Patient Health Record ---
Author Organization [facility] Address [address] [place] [address] Care Team Providers Care Banking Representative Name Role Phone Cade THACKER, Carlitos Primary Care Provider Inder Beckman Jr Unavailable Allergies Allergen (clinical drug ingredient) Drug/Non Drug Allergy documented on EMR Reaction Allergy Type Onset Date Status dairy intolerant (uncoded) Unknown Allergy Active soybean oil soy brown oil (uncoded) Unknown Allergy Active Shellfish (FN) shell fish (uncoded) Unknown Allergy Active Results Component Value Reference Range Notes Pathology Reviewed date:12/21/2023 07:50:57 AM Interpretation: Performing Lab:[facility], [address] [place] [address] Notes/Report: Name: PaulaAbby ge/Sex: 83/F : 1940 Unit#: [id number] Attend Dr: Inder Wilson MD Re12/16/23 Status : [facility] Location: [facility] Disch: SPEC : [id number] RECD : 12/16/23 STATUS: YOANA MADERA NUM: [id number] PIPE: 12/16/23-[address]: Inder Wilson MD ENTERED: 12/16/23 SP TYPE: Surgical OTHR DR: Carlitos Mohamud MD ORDERED: HE Stain/6, Gross Micro L4/2, H. pylori/2 Diagnosis A. Stomach, polyps, biopsy: Fundic gland polyps; negative for Helicobacter pylori, intestinal metaplasia and dysplasia. B. Stomach, ulcer, b iopsy: Gastric antral mucosa with reactive gastropathy, active gastritis and detach ed fibrinopurulent debris, in keeping with changes adjacent to ulcer; negative for Helicob acter pylori, intestinal metaplasia and dysplasia. Clinical History Pre-Op Dx: Dysphagia, unspecified Post-Op Dx: Dysphagi a, gastric polyp, gastric ulcer Microscopic Description A-B. Microscopic sec tions examined. No metaplastic changes are seen, supported by AB/PAS stains (A-B); no Hel icobacter organisms are seen, supported by H. pylori immunostain (A-B). Material Received A. Bx's of gastric polyps B. Gastric ulcer bx's Gross Description Received in two parts. Part A: Received in formalin labeled ?bx's gastric polyp? are 2 taylor-pink irregular tissue fragments each measu ring 0.2 cm, submitted in toto in a cassette labeled A. Part B: Received in formalin labeled ?gastric ulcer bx's? are 3 taylor-pink and pink-red irregular tissue fra gments ranging from 0.25-0.35 cm, submitted in toto in a cassette labeled B. CEDS Special stains order ed and performed: AB/PAS on A-B; immunostain for H. pylori on A-B. Copies To: Inder Wilson MD [facility] [address] [place] [address] [address] [place] [address] CONTINUED ON NEXT PAGE Name: Abby Mitchell ge/Sex: 83/F : 1940 Unit#: [id number] Attend Dr: Inder Wilson MD Re12/16/23 Status : [facility] Location: [facility] Disch: SPEC : [id number] RECD : 12/16/23 STATUS: YOANA MADERA NUM: [id number] PIPE: 12/16/[address] [facility] [address]: Inder Wilson MD ENTERED: 12/16/23 09 SP TYPE: Surgical OTHR DR: Carlitos Mohamud MD ORDERED: HE Stain/6, Gross Micro L4/2, H. pylori/2 Copies To: (Continued) Carlitos Mohamud MD [facility] [address] [place] [id number] Signed (si gnature on file) Josette Tejeda MD 12/17/23 1600 END OF REPORT Pathology Reviewed date:06/16/2024 02:40:08 PM Interpretation: Performing Lab:[facility], [address] [place] [phone] Notes/Report: Name: Abby Mitchell ge/Sex: 84/F : 1940 Unit#: [id number] Attend Dr: Inder Wilson MD Re06/10/24 Status : [facility] Location: [facility] Disch: SPEC : [id number] RECD: 06/10/241140 STATUS: YOANA MADERA NUM: [id number] PIPE: 06/10/24-101[address] [facility] [address]: Inder Wilson MD ENTERED: 06/10/24-11 56 SP TYPE: Surgical OTHR DR: Carlitos Mohamud MD ORDERED: HE Stain/3, Gross Micro L4, IHC, H. pylori Addendum Addendum 1 Entered: 06/15/24 Immunostain for H. p ylori is negative. Control stains appropriately. Addendum Signed ____ __(signature on file) Deborah Doris 06/15/24 0928 Diagnosis Gastric ulcer, biops y: Reactive gastropathy with minimal chronic active inflammation and fragments of fibrino inflammatory exudate consistent with ulcer; negative for intestinal metaplasia and dysplasia. Comment: H. pylori i mmunostain pending; addendum to follow. Clinical History Dysphagia, gastric ulcer Microscopic Description Microscopic sections reviewed. Material Received Gastric ulcer bx's Gross Description Received in formalin labeled ?biopsies gastric ulcer? are 3 fragments of pink white soft tissue measuring 0.1 0.3 cm in greatest dimension which are wrapped in lens paper and entirely submitted f or microscopic examination, 3 pieces in cassette A. [facility] Special studies orde red and performed: Immunostain for H. pylori on A1. CONTINUED ON NEXT PAGE Name: Abby Mitchell ge/Sex: 84/F : 1940 Unit#: [id number] Attend Dr: Inder Wilson MD Re06/10/24 Status : [facility] Location: [facility] Disch: SPEC : [id number] RECD: 06/10/24 STATUS: YOANA MADERA NUM: [id number] PIPE: 06/10/24-[address]: Inder Wilson MD ENTERED: 06/10/24-11 56 SP TYPE: Surgical OTHR DR: Carlitos Mohamud MD ORDERED: HE Stain/3, Gross Micro L4, IHC, H. pylori Copies To: Inder Wilson MD [facility] [address] [place] [address] [address] [place], [place] [id number] Carlitos Mohamud MD [facility] [address] [place] [phone] Signed (si gnature on file) Deborah George 06/13/24 1147 END OF REPORT Reason For Referral No Information Medications Medication SIG (Take, Route, Frequency, Duration) Notes Start Date End Date Status Magnesium Oxide 400 MG 1 tablet Orally t wice a day Active Calcitriol 0.25 MCG 1 capsule Orally thr ee x a week Active Lactaid 3000 UNIT 1 tablet with first bite of dairy - containing food Orally Once a day for 30 day(s) Active Vitamin D3 50 MCG (1999) 1 capsule Or ally Once a week Active Glucosamine 500 MG 1 capsule with a alvin l Orally Three times a day for 30 day(s) Active Move [facility] Advance - as directed Orally once [...] Once a day for 30 day(s) Active Omeprazole 40 MG TAKE 1 CAPSULE 30 MINUTES BEFORE MORNING MEAL ONCE A DAY for 30 Active Furosemide 40 MG 1 tablet Orally Once a day for 30 day(s) Active Immunizations Vaccine Route Administration Date Status Comme nts Influenza Unknown 2019 Administered Influenza Unknown 04/24/2022 Administered Influenza Unknown 03/29/2024 Administered Social History Tobacco Use: Social History Observation [...] Problem Status W/U Status Risk Notes Problem 521683633 [facility] (current) use of anticoagulants (Z79.01) Active confirmed Problem 50214194 Acute gastric ulcer without hemorrhage or perforation (K25.3) Active confirmed Problem 915335810 Irritable bowel syndrome with diarrhea (K58.0) Active confirmed Problem Dysphagia (85386853) Dysphagia (R13.10) Active confirmed Problem 56181219 Esophageal stricture (K22.2) Active confirmed Problem Gastric polyp (62150748) Gastric polyp (K31.7) Active confirmed Problem 58327717 Dysphagia, unspecified type (R13.10) Active confirmed Problem Gastric ulcer (826748837) Gastric ulcer (K25.9) Active confirmed Vital Signs Temperature 97.3 degrees Fahrenheit 04/04/2024 Blood pressure diastolic 00 mm Hg 04/04/2024 Height 65 in 04/04/2024 Blood pressure systolic 000 mm Hg 04/04/2024 Weight 132 lb 6 oz lbs 04/04/2024 BMI 22.03 kg/m2 04/04/2024 Encounters Encounter Location Date Provider Diagnosis [facility] Outpatient [address] [place] [id number] 12/16/2023 Inder Wilson Jr Dysphagia R13.10 ; Gastric polyp K31.7 and Gastric ulcer K25.9 [facility] Outpatient [address] [place] [id number] 06/10/2024 Inder Wilson Jr Dysphagia R13.10 and Gastric ulcer K25.9 [facility] [address] [place] [phone] 12/11/2023 Inder Wilson Jr Dysphagia, unspecified type R13.10 and Esophageal stricture K22.2 [facility] [address] [place] [phone] 04/04/2024 Inder Wilson Jr Acute gastric ulcer without hemorrhage or perforation K25.3 ; Dysphagia, unspecified type R13.10 and [facility] (current) use of anticoagulants Z79.01 [facility] [address] [place] [phone] 12/16/2023 Inder Wilson Jr [facility] [address] [place] [phone] 12/18/2023 Inder Wilson Jr [facility] [address] [place] [phone] 06/16/2024 Inder Wilson Jr Assessments Encounter Date Diagnosis (ICD Code) Assessment Notes Treatment Notes Treatment Clinical Notes Section Notes 12/16/2023 Dysphagia (ICD-10 - R13.10) 12/16/2023 Gastric polyp (ICD-10 - K31.7) 06/10/2024 Dysphagia (ICD-10 - R13.10) 06/10/2024 Gastric ulcer (ICD-10 - K25.9) 12/11/2023 Esophageal stricture (ICD-10 - K22.2) We discussed gastroesophageal reflux disease today. We discussed dysphagia and esophageal strictures. We have recommended further evaluation with upper endoscopy. She is advised to stop Eliquis 3 days before. Balloon dilation can be done at the time of her endoscopy as she had done previously in 2019. This seemed to help her significantly. 12/11/2023 Dysphagia, unspecified type (ICD-10 - R13.10) Endoscopy material was printed We discussed gastroesophageal reflux disease today. We discussed dysphagia and esophageal strictures. We have recommended further evaluation with upper endoscopy. She is advised to stop Eliquis 3 days before. Balloon dilation can be done at the time of her endoscopy as she had done previously in 2019. This seemed to help her significantly. 04/04/2024 Acute gastric ulcer without hemorrhage or perforation (ICD-10 - K25.3) We discussed pe ptic ulcer disease today. We discussed her symptoms. She appears comfortable following her dilation. She can use ixig-lpo-drhvibb antacids as needed for her reflux symptoms in addition to her higher dose of omeprazole. Followup endoscopy because of her antral ulcers will be arranged. She is aware risks and benefits and agrees to proceed. She will stop Eliquis 3 days before the procedure 04/04/2024 Dysphagia, unspecified type (ICD-10 - R13.10) We discussed p eptic ulcer disease today. We discussed her symptoms. She appears comfortable following her dilation. She can use wqas-uvj-qonhbtj antacids as needed for her reflux symptoms in addition to her higher dose of omeprazole. Followup endoscopy because of her antral ulcers will be arranged. She is aware risks and benefits and agrees to proceed. 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 We discussed her symptoms. She appears comfortable following her dilation. She can use rbuc-vub-gdvfxcr antacids as needed for her reflux symptoms in addition to her higher dose of omeprazole. Followup endoscopy because of her antral ulcers will be arranged. She is aware risks and benefits and agrees to proceed. She will stop Eliquis 3 days before the procedure Plan Of Treatment Pending Test Test Name Order Date XR GI SERIES 08/28/2022 Future Test Test Name Order Date UPPER GI ENDOSCOPY BALLOOON DILATION OF ESOPH 04/06/2019 UPPER GI ENDOSCOPY BALLOOON DILATION OF ESOPH 04/30/2022 UPPER GI ENDOSCOPY BALLOOON DILATION OF ESOPH 12/11/2023 UPPER GI ENDOSCOPY 04/04/2024 Insurance Providers Payer Name Payer Address Payer Phone Subscriber Number Group Number Insured Name Patient Relationship to Insured Coverage Start Date Coverage End Date MEDICARE OF [place] [address] [place] [address] [id number] ABBY MITCHELL Self - patient is the insured [employer] ATT[employer] CLAIMS [address] [place] [address] [id number] ABBY MITCHELL Self - patient is the insured Medical (General) History Medical History History ICD Code Atrial fibrillation hypertension 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 Balloon dilation for dysphagia Surgical History Surgery Date(Month/Year) fistula repair 1961 appendectomy 1962 partial hysterectomy 1979 cholecystectomy 2012 ? prolapse bladder 2011 ? laser surgeries on eyes
--- OUTSIDE RECORDS SUMMARY | 2024-08-31 12:42 | XMS_ITS ---
Author Organization [facility] Address [address] [place] [phone] Care Team Providers Care Strategic Business Development Name Role Phone Cade THACKER, Carlitos Primary Care Provider Unavailab Inder Amezquita Jr REASON FOR VISIT acute gastric ulcer w/o hemorrage Encounters Encounter Location Date Provider Diagnosis [facility] Outpatient [address] [place] [phone] 06/10/2024 Inder Wilson Jr Dysphagia R13.10 and Gastric ulcer K25.9 Assessments Encounter Date Diagnosis (ICD Code) Assessment Notes Treatment Notes Treatment Clinical Notes Section Notes 06/10/2024 Dysphagia (ICD-10 - R13.10) 06/10/2024 Gastric ulcer (ICD-10 - K25.9) Plan Of Treatment No Information Progress Notes * SEHLTON MITCHELL ADOB:1940 (84 yo F)Acc No.[id number]:06/10/2024 EGD/MAC Patient:?SHELTON MITCHELL Provider:?Inder Wilson MD :1940???Age:84 Y???Sex:Female D ate:06/10/2024 Address:[address] [place] [address] [id number] Pcp:Carlitos Mohamud MD Subjective: * Chief Complaints: * ???1. Acute gastric ulcer w/ o hemorrage. * Medical History:? Objective: * Vitals:? Assessment: * Assessment: 1.?Dysphagia - R13.10 (Prima ry)???2.?Gastric ulcer - K25.9??? Plan: * Treatment: * Procedure Codes:?46024 UPPER GI ENDOSCOPY, BIOPSY, 94625 ESOPH ENDOSCOPY, DILATION, Modifiers: 59 * * The named appointment provid er may or may not be the originator of this progress note, and it is not deemed complete until electronically signed by the appointment provider. Sign off status: Pending * Provider:?Inder Wilson MD Date:?0 06/10/2024 Generated for Cassidy rob/Raul/Karlaitting on:?08/31/2024 12:42 PM EDT
--- OUTSIDE RECORDS SUMMARY | 2024-08-31 12:42 | XMS_ITS ---
Author Organization [facility] Address [address] [place] [address] Care Team Providers Care Chainsaw Mechanic Name Role Phone Carlitos Mohamud MD Primary Care Provider Unavailab Inder Amezquita Jr Unavailable [phone] REASON FOR VISIT pathology Encounters Encounter Location Date Provider Diagnosis [facility] [address] [place] [address] 06/16/2024 Inder Wilson Jr Plan Of Treatment No Information Progress Notes * SHELTON MITCHELL ADOB:1940 (84 yo F)Acc No.[id number]:06/16/2024 Patient:?PAULASHELTON :1940???Age:84 Y???Sex:Female Address:[address] [place] [address], [address] * true * Date:? Generated for Cassidy rob/Raul/eTransmitting on:?08/31/2024 12:42 PM EDT
== END 2024-08-31 10:53 | disposition home or self-care (01) ==
LOC: HO.MAMMO 10:52
PROVIDERS: PCP Internal Medicine; Visit Provider Internal Medicine
DX: Z12.31 Encounter for screening mammogram for malignant neoplasm of breast (principal)
CPT/HCPCS: 77063; 77067

== ENCOUNTER → 2024-08-31 11:00 | Outpatient (BNV) | payer MEDICARE, SELFPAY | PROVIDERS: PCP Internal Medicine; Visit Provider Internal Medicine | DX: Z12.31 Encounter for screening mammogram for malignant neoplasm of breast (principal) | CPT/HCPCS: 77063; 77067 ==

== ENCOUNTER 2024-10-31 13:07 | Outpatient (AMB) | payer MEDICARE, SELFPAY ==
[2024-10-31 13:12] VITALS: BP 128/68; PULSE 48; BMI 22.3
--- NOTE | 2024-10-31 13:12 | MHC.OFFVIS ---
Vital Signs 10/31/24 13:12 Height 5 ft 4 in Weight 130 lb BMI 22.3 BP 128/68 Blood Pressure Location Lt brachial Position Sitting Pulse 48 L Pulse Source Monitor Intake Visit Reasons: pt request sob slow hr bp high Allergies egg [Egg] Allergy (Severe, Verified 06/10/24 08:32) DIARRHEA lactose Allergy (Severe, Verified 06/10/24 08:32) Diarrhea shellfish derived [SHELLFISH DERIVED] Allergy (Severe, Verified 06/10/24 08:32) DIARRHEA sotalol [SOTALOL] Allergy (Severe, Verified 06/10/24 08:32) CARDIAC ARREST soybean oil [Soybean Oil] Allergy (Severe, Verified 06/10/24 08:32) DIARRHEA Medication List - Last Reconciled 10/31/24 by Bryan Malin MD apixaban (Eliquis) 5 mg PO BID calcitriol 0.25 mcg PO 3XW cholecalciferol (vitamin D3) 50 mcg PO DAILY diltiazem HCl CD 240 mg PO DAILY furosemide 40 mg PO DAILY levothyroxine 25 mcg PO DAILY loperamide 2 mg PO Q6H PRN magnesium oxide 400 mg PO BID metoprolol tartrate 50 mg PO BID multivitamin 1 tab PO DAILY omeprazole 20 mg PO DAILY HPI Comments Details: Abby is here for follow up regarding atrial fibrillation. 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 This led to cardiac arrest from which she was successfully resuscitated. Subsequently, she was briefly on hemodialysis. She had a complicated course but then eventually recovered completely. Recently, she has had high blood pressure issues. She is also having symptoms like shortness of breath and some dizziness. It seems that PCP started her on metoprolol 50 mg b.i.d. and after that, she states that her symptoms actually got worse rather. Hence she cut back on the metoprolol dosing to once a day but she still feels that way. Today's blood pressure seems better. [facility] Medical History Dysphagia IBS (irritable bowel syndrome) Cardiac arrest HTN (hypertension) DNR (do not resuscitate) Pulmonary hypertension Non-rheumatic tricuspid valve insufficiency Persistent atrial fibrillation Surgical History History of esophagogastroduodenoscopy (EGD) History of cholecystectomy History of prolapse of bladder History of hysterectomy History of appendectomy History of esophageal surgery Family History Father Pacemaker Atrial fibrillation Mother Atrial fibrillation Social History Household Members: Spouse Household Members Other:: lives in in law apt. at son's house Are you a primary floor care specialist to a significant other at home: No Do you presently have visiting nurse or other home services: No Alcohol intake: never Comment: uses cane for long distances Patient Tobacco Use Status: Never used Tobacco Review of Systems Const Denies weakness ENT Reports dizziness Card Denies chest pain, Denies chest pain with activity, Denies syncope, Denies rapid heart rate, Denies pedal edema, Denies edema, Denies leg edema, Reports lightheadedness, Reports palpitations, Reports dyspnea, Denies dyspnea on exertion and Denies orthopnea Resp Denies cough, Reports dyspnea and Denies dyspnea on exertion GI Denies hematochezia and Denies change in stool character Musc Denies abnormal gait, Denies muscle cramps, Denies muscle weakness, Denies numbness, Denies radiating pain into limb and Denies tingling Neuro Denies abnormal gait, Reports dizziness, Denies syncope, Denies numbness, Denies tingling and Denies weakness Endo Reports palpitations Physical Exam Vital Signs: Last Vital Signs Pulse 48 L 10/31/24 13:12 BP 128/68 10/31/24 13:12 BMI result Body Mass Index 22.3 Const General: comfortable and no acute distress Orientation/consciousness: patient oriented x3 HEENT Other: Unremarkable Head: Yes normal to inspection Neck Neck: Yes normal visual inspection Chest Chest palpation & inspection: normal inspection of the chest Resp Auscultation: clear to auscultation bilaterally Cardio Palpation: normal PMI Heart sounds: S1 normal heart sound present, S2 normal heart sound present, no gallops, no murmurs and no rubs GI Palpation (GI): Soft to palpation Back/Spine/Pelvis Other: unremarkable Skin General skin exam: no rashes or lesions noted Neuro General: patient oriented x3 Extrem General: Yes normal to inspection Psych Mental Status: mental status grossly normal Office Procedures EKG Details: EKG with atrial fibrillation; 48/min; rightward axis; nonspecific ST-T changes. 15654-Qwxdjynbzibisvldj, Complete Assessment & Plan Assessment & Plan (1) Persistent atrial fibrillation: Comment: follows w/HCS Code(s): I48.19 - Other persistent atrial fibrillation Category: Medical Plan: Continue diltiazem but stopped the metoprolol as is probably making her more bradycardic and hence aggravating her symptoms. Indeed she was on Coreg in the past which was stopped. Continue Eliquis. (2) Primary hypertension: Code(s): I10 - Essential (primary) hypertension Category: Medical Plan: Obtain labs to PCP. Based on creatinine/potassium, probably start lisinopril but she has taken before. She has a history of acute renal failure/dialysis in setting of torsade more than 10 years ago and hence would like to monitor her creatinine closely if he were to start lisinopril. (3) Non-rheumatic tricuspid valve insufficiency: Comment: Moderate by echo Code(s): I36.1 - Nonrheumatic tricuspid (valve) insufficiency Category: Medical Plan: Zcbf-oe-iyvvpttl tricuspid regurgitation in the most recent echocardiogram. In the past, as much as moderate to severe. No specific concerns at this time. Plan Discussion Notes During the consultation, we discussed the current management of hypertension and associated medication side effects. The potential for Lisinopril to replace Metoprolol was considered, pending renal function test results. The cessation of Metoprolol aims to resolve induced bradycardia symptoms. Detailed discussions addressed Lisinopril's past efficacy and the need for renal stability. We reviewed the patient's previous medication history and reasons for past changes, ensuring all potential complications were acknowledged. Follow-up was confirmed for three months, with immediate assessment pending blood work completion. The patient expressed understanding and agreement with the proposed changes. Patient was informed and verbally consented to the use of an ambient scribe for clinic note documentation during this visit. Patient Instructions: - Stop taking Metoprolol immediately. - Wait for your lab results to be reviewed before starting any new medication. - Report any new symptoms or worsening of existing symptoms right away. - Continue measuring your blood pressure regularly. - Attend your follow-up appointment in three months. - Call the office if you have questions or concerns before your next visit. Coding Level of Care Code Est Pt Level 4 (99753) Complex EM visit Add On G2211 Diagnoses Persistent atrial fibrillation I48.19 Primary hypertension I10 Non-rheumatic tricuspid valve insufficiency I36.1 CPT Codes EKG - CPT: 43792-Obnwrecdqjqcsyczi, Complete ([id number])
--- OUTSIDE RECORDS SUMMARY | 2024-10-31 14:50 | XMS_ITS | Patient Health Record ---
Author Organization [facility] Address [address] [place] [address] Care Team Providers Care Er Nurse Name Role Phone Cade THACKER, Carlitos Primary [...] Pathology Reviewed date:12/21/2023 07:50:57 AM Interpretation: Performing Lab:[facility], [address] [place] [address] Notes/Report: Name: PaulaAbby ge/Sex: 83/F : 1940 Unit#: [id number] Attend Dr: Inder Wilson MD Re12/16/23 Status : [facility] Location: [facility] Disch: SPEC : [id number] RECD : 12/16/23 STATUS: YOANA MADERA NUM: [id number] PIPE: 12/16/23-[address]: Inder Wilson MD [...] on A-B. Copies To: Inder Wilson MD [facility] [address] [place] [address] [address] [place] [address] CONTINUED ON NEXT PAGE Name: Abby Mitchell ge/Sex: 83/F : 1940 Unit#: [id number] Attend Dr: Inder Wilson MD Re12/16/23 Status : [facility] Location: [facility] Disch: SPEC : [id number] RECD : 12/16/23 STATUS: YOANA MADERA NUM: [id number] PIPE: 12/16/[address] [facility] [address]: Inder Wilson MD ENTERED: 12/16/23 09 SP TYPE: Surgical OTHR DR: Carlitos Mohamud MD ORDERED: HE Stain/6, Gross Micro L4/2, H. pylori/2 Copies To: (Continued) Carlitos Mohamud MD [facility] [address] [place] [address] Signed (si gnature on file) Josette Tejeda MD 12/17/23 1600 END OF REPORT Pathology Reviewed date:06/16/2024 02:40:08 PM Interpretation: Performing Lab:[facility], [address] [place] [phone] Notes/Report: Name: Abby Mitchell ge/Sex: 84/F : 1940 Unit#: [id number] Attend Dr: Inder Wilson MD Re06/10/24 Status : [facility] Location: [facility] Disch: SPEC : [id number] RECD: 06/10/241140 STATUS: YOANA MADERA NUM: [id number] PIPE: 06/10/24-[address] [facility] [address]: Inder Wilson MD ENTERED: 06/10/24-11 [...] microscopic examination, 3 pieces in cassette [facility] Special studies orde red and performed: Immunostain for H. pylori on A1. CONTINUED ON NEXT PAGE Name: Abby Mitchell ge/Sex: 84/F : 1940 Unit#: [id number] Attend Dr: Inder Wilson MD Re06/10/24 [place] : [facility] [place]: [facility] Disch: SPEC : [id number] RECD: 06/10/24 STATUS: YOANA MADERA NUM: [id number] PIPE: 06/10/24-[address]: Inder Wilson MD ENTERED: 06/10/24-11 56 SP TYPE: Surgical OTHR DR: Carlitos Mohamud MD ORDERED: HE Stain/3, Gross Micro L4, IHC, H. pylori Copies To: Inder Wilson MD [facility] [address] [place] [address] [address] [place], [place] [id number] Carlitos Mohamud MD [facility] [address] [place] [address] [phone] Signed (si gnature on file) Deborah George [...] for 30 day(s) Active Move Free [facility] Advance - as directed Orally [...] Problem Status W/U Status Risk Notes Problem [id number] longterm (current) use of anticoagulants (Z79.01) Active confirmed Problem 80066767 Acute gastric ulcer without hemorrhage or perforation (K25.3) Active confirmed Problem 245015641 Irritable bowel syndrome with diarrhea (K58.0) Active confirmed Problem Dysphagia (34106070) Dysphagia (R13.10) Active confirmed Problem 76731229 Esophageal stricture (K22.2) Active confirmed Problem Gastric polyp (01764045) Gastric polyp (K31.7) Active confirmed Problem 29527668 Dysphagia, unspecified type (R13.10) Active confirmed Problem Gastric ulcer (K25.9) Active confirmed Vital Signs Temperature 97.3 degrees Fahrenheit 04/04/2024 Blood pressure diastolic 00 mm Hg 04/04/2024 Height 65 in 04/04/2024 Blood pressure systolic 000 mm Hg 04/04/2024 Weight 132 lb 6 oz lbs 04/04/2024 BMI 22.03 kg/m2 04/04/2024 Encounters Encounter Location Date Provider Diagnosis [facility] [place] [address] [place] [phone] 12/16/2023 Inder Wilson Jr Dysphagia R13.10 ; Gastric polyp K31.7 and Gastric ulcer K25.9 [facility] Out[facility] [address] [place] [address] [id number] 06/10/2024 Inder Wilson Jr Dysphagia R13.10 and Gastric ulcer K25.9 [facility] [address] [place] [phone] 12/11/2023 Inder Wilson Jr Dysphagia, unspecified type R13.10 and Esophageal stricture K22.2 [facility] [address] [place] [phone] 04/04/2024 Inder Wilson Jr Acute gastric ulcer without hemorrhage or perforation K25.3 ; Dysphagia, unspecified type R13.10 and longterm (current) use of anticoagulants Z79.01 [facility] [address] [place] [phone] 12/16/2023 Inder Wilson Jr [facility] [address] [place] [phone] 12/18/2023 Inder Wilson Jr [facility] [address] [place] [phone] 06/16/2024 Inder Wilson Jr Assessments Encounter Date [...] comfortable following her dilation. She can use giwj-igc-wzupkvf antacids as needed for her reflux symptoms [...] comfortable following her dilation. She can use etct-bvd-gxvreck antacids as needed for her reflux symptoms in addition to her higher dose of omeprazole. Followup endoscopy because of her antral ulcers will be arranged. She is aware risks and benefits and agrees to proceed. She will stop Eliquis 3 days before the procedure 12/16/2023 Gastric ulcer (ICD-10 - K25.9) 04/04/2024 longterm (current) use of anticoagulants (ICD-10 - Z79.01) We discussed p eptic ulcer disease today. We discussed her symptoms. She appears comfortable following her dilation. She can use msfw-ynt-tfiyejh antacids as needed for her reflux symptoms [...] Date MEDICARE OF [place] [address] [place] [address] [id number] PAULAABBY Roy Self - patient is the insured [employer] CLAIMS [address] [place] [address] [id number] ABBY MITCHELL Self - patient is the [...]
== END 2024-10-31 13:47 | disposition home or self-care (01) ==
LOC: HO.HCS 13:08
PROVIDERS: PCP Internal Medicine; Visit Provider Internal Medicine
DX: I48.19 Other persistent atrial fibrillation (principal); I10 Essential (primary) hypertension; I36.1 Nonrheumatic tricuspid (valve) insufficiency
CPT/HCPCS: 93010; 99214; G2211

== ENCOUNTER → 2024-10-31 13:07 | Outpatient (BNVA) | payer MEDICARE, SELFPAY | PROVIDERS: PCP Internal Medicine; Visit Provider Internal Medicine | DX: I48.19 Other persistent atrial fibrillation (principal); I36.1 Nonrheumatic tricuspid (valve) insufficiency; I10 Essential (primary) hypertension; R94.31 Abnormal electrocardiogram [ECG] [EKG] | CPT/HCPCS: 93005; 99212 ==

== ENCOUNTER 2025-01-16 09:50 | Outpatient (AMB) | payer MEDICARE, SELFPAY ==
--- NOTE | 2025-01-16 10:11 | A.OFFPC_ITS ---
Vital Signs 01/16/25 10:31 Height 5 ft 2.99 in Weight 127 lb BMI 22.5 BP 152/71 H Respiration 14 Pulse 60 Pulse Source Pulse Oximeter Temp 98.4 F Temp Source Temporal Artery Scan Pulse Oximetry (%) 97 Oxygen Delivery Method Room Air Intake Visit Reasons: Est Care ~ Transfer From Dr. Mohamud~ Afib, HTN Tapper Helper Required: No Accompanied by: Spouse Allergies egg (Egg) Allergy (Severe, Verified 01/16/25 10:11) DIARRHEA lactose Allergy (Severe, Verified 01/16/25 10:11) Diarrhea shellfish derived (SHELLFISH DERIVED) Allergy (Severe, Verified 01/16/25 10:11) DIARRHEA sotalol (SOTALOL) Allergy (Severe, Verified 01/16/25 10:11) CARDIAC ARREST soybean oil (Soybean Oil) Allergy (Severe, Verified 01/16/25 10:11) DIARRHEA Tobacco use date assessed: 01/16/25 Fall risk assessment: No Falls in past year Last assessed Fall Risk: 01/16/25 Dental Screening Dental Screen Date: 01/16/25 Did you have a dental visit in the last 12 months?: No Did you have a dental problem in the last 6 months where you did not have access to dental care?: No Was dental information given to patient?: Patient has dentist (pt has dentures) [facility] Medical History Dysphagia IBS (irritable bowel syndrome) Cardiac arrest HTN (hypertension) DNR (do not resuscitate) Pulmonary hypertension Non-rheumatic tricuspid valve insufficiency Persistent atrial fibrillation Surgical History History of esophagogastroduodenoscopy (EGD) History of cholecystectomy History of prolapse of bladder History of hysterectomy History of appendectomy History of esophageal surgery Family History Father Pacemaker Atrial fibrillation Mother Atrial fibrillation Social History (Updated 01/16/25 @ 10:39 by FRANKIE Portillo) Household Members: Spouse Household Members Other:: lives in in law apt. at son's house Housing: House Are you a primary director of health care marketing to a significant other at home: No Do you presently have visiting nurse or other home services: No Alcohol intake: current Alcohol intake frequency: holidays/special occasions only Comment: uses cane for long distances Patient Tobacco Use Status: Never used Tobacco service: No Current occupational status: retired Cognitive needs: No Hearing needs: Yes (b/l hearing aids) Vision needs: Yes (rx glasses) Questionnaire PHQ-9 Over the last 2 weeks, how often have you been bothered by any of the following problems? 1. Little interest or pleasure in doing things: not at all 2. Feeling down, depressed, or hopeless: not at all 3. Trouble falling or staying asleep, or sleeping too much: not at all 4. Feeling tired or having little energy: not at all 5. Poor appetite or overeating: not at all 6. Feeling bad about yourself - or that you are a failure or have let yourself or your family down: not at all 7. Trouble concentrating on things, such as reading the newspaper or watching t elevision: not at all 8. Moving or speaking so slowly that other people could have noticed. Or the opposite - being so fidgety or restless that you have been moving around a lot more than usual: not at all 9. Thoughts that you would be better off or of hurting yourself in some way: not at all Total score: 0 Source: Developed by Drs. Tomas Petty, Katie Canchola, Cody Lozano and colleagues, with an educational deepa from [employer]. Thrive Questionnaire Date Thrive assessed: 01/16/25 I am a: Patient What is your living situation today?: I have a steady place to live Within the past 12 months, did the food you bought not last and you didn't have the money to get more?: Never true Within the past 12 months, did you worry whether your food would run out before you got money to buy more?: Never true Do you have trouble paying for medicines?: No Do you have trouble getting transportation to medical appointments?: No Do you have trouble paying your heating and electricity bill?: No Do you have trouble taking care of your child, family member or friend?: No Do you have trouble with day-to-day activities such as bathing, preparing meals, shopping, managing finances, etc.?: No Are you currently unemployed and looking for a job?: No Are you interested in more education?: No Please select the resources that you would like help with: None THRIVE Score: 0 AUDIT C Alcohol Use Questionnaire (AUDIT-C) 1. How often do you have a drink containing alcohol?: Monthly or less 2. How many drinks containing alcohol do you have on a typical day when you are drinking?: 1 or 2 3. How often do you have six or more drinks on one occasion?: Never Total Score: 1 CASSIA-7 AMB Questionnaire CASSIA-7 Date CASSIA - 7 assessed: 01/16/25 Feeling nervous, anxious, or on edge: 0 = Not at all Not being able to stop or control worryin = Not at all Worrying too much about different things: 0 = Not at all Trouble relaxin = Not at all Being so restless that it is hard to sit still: 0 = Not at all Becoming easily annoyed or irritable: 0 = Not at all Feeling afraid as if something awful might happen: 0 = Not at all Total CASSIA-7 score (0-4 normal; 5-9 mild; 10-14 moderate; 15-21 severe): 0 Source: Developed by Drs. Tomas Petty, Katie Canchola, Cody Lozano and colleagues, with an educational deepa from [employer]. Physical exam (Primary Care) Vital Signs: Last Vital Signs Temp 98.4 F 01/16/25 10:31 Pulse 60 01/16/25 10:31 Resp 14 01/16/25 10:31 BP 152/71 H 01/16/25 10:31 Pulse Ox 97 01/16/25 10:31 Oxygen Delivery Method Room Air 01/16/25 10:31 BMI result Body Mass Index 22.5 Tobacco/Smoking Status: Tobacco use Status Tobacco use date assessed 01/16/25 01/16/25 10:13 Patient Tobacco Use Status Never used Tobacco 01/16/25 10:39 PHQ-9: PHQ-9 Score PHQ-9: Total score 0 01/16/25 10:37 Thrive Assessment: Date of Thrive Assessment Date Thrive assessed 01/16/25 01/16/25 10:13 Coding Level of Care Code New Pt Level 4 (91645) Complex EM visit Add On G2211 Diagnoses Persistent atrial fibrillation I48.19 Assessment & Plan Assessment & Plan (1) Persistent atrial fibrillation: Comment: follows w/[facility] Code(s): I48.19 - Other persistent atrial fibrillation Category: Medical Plan: History of Present Illness - The patient is an 84-year-old female presenting with management of diverticulitis, gastric ulcer, and atrial fibrillation. - Diverticulitis: The patient experiences occasional pain in the descending colon area due to diverticulitis. - Gastric ulcer: The patient is being treated by Dr. Wilson for a gastric ulcer, which has not fully healed. - Atrial fibrillation: The patient has a history of atrial fibrillation, managed with Sotalol and cardioversion in 2013, leading to a prolonged hospital stay due to complications. - Currently, the patient reports no symptoms of atrial fibrillation and has been reassured about the condition's management. Social History - The patient is independent in activities of daily living, including driving and grocery shopping. Review of Systems - Gastrointestinal: Reports occasional abdominal pain and diarrhea, denies other gastrointestinal symptoms. - Cardiovascular: Denies palpitations or heart racing. Physical Exam General: Cooperative and healthy appearing Nutritional Appearance: Well nourished Orientation/consciousness: Patient oriented x3 Limitations: No limitations Head: Normal to inspection General: Appearance normal, both eyes and all related structures Neck: Normal visual inspection Chest: Normal palpation of entire chest wall Respiratory: N ormal respiratory effort Neurology: Patient oriented x3, drives, does groceries, and manages daily activities independently. Results Plan 1. Diverticulitis - Monitor symptoms and manage with dietary modifications as needed. 2. Gastric Ulcer - Follow-up with Dr. Wilson for ongoing management and reassessment of treatment efficacy. 3. Atrial Fibrillation - Continue current management plan as advised by Dr. Maria, with regular monitoring of symptoms. Discussion Notes During the visit, we discussed the management of diverticulitis, gastric ulcer, and atrial fibrillation. The patient was advised to continue with dietary modifications for diverticulitis and to follow up with Dr. Wilson for the gastric ulcer. We also reviewed the current management plan for atrial fibrillation, emphasizing regular monitoring and reassurance provided by Dr. Maria. Patient Instructions - Continue dietary modifications to manage diverticulitis. - Follow up with Dr. Wilson for gastric ulcer management. - Monitor for any symptoms of atrial fibrillation and report any changes.
[2025-01-16 10:31] VITALS: BP 152/71; PULSE 60; RESP 14; TEMP 36.9; O2SAT 97; BMI 22.5
--- OUTSIDE RECORDS SUMMARY | 2025-01-16 10:45 | XMS_ITS | Patient Health Record ---
Author Organization [facility] Address [address] [place] [address] Care Team Providers Care Storage Receipt Poster Name Role Phone Cade (RETIRED) Carlitos THACKER Primary Care Provider Unavailable Inder Wilson Jr Unavailable Allergies Allergen (clinical drug ingredient) Drug/Non Drug Allergy documented on EMR Reaction Allergy Type Onset Date Status dairy intolerant (uncoded) Unknown Allergy Active soybean oil soy brown oil (uncoded) Unknown Allergy Active Shellfish (FN) shell fish (uncoded) Unknown Allergy Active Results Component Value Reference Range Notes Pathology Reviewed date:06/16/2024 02:40:08 PM Interpretation: Performing Lab:[facility], [address] [place] [id number] Notes/Report: Reason For Referral No Information Medications Medication [...] for 30 day(s) Active Move Free Joint Health Advance - [...] Problem Status W/U Status Risk Notes Problem 211519546 termination clerk (current) use of anticoagulants (Z79.01) Active confirmed Problem 55298971 Acute gastric ulcer without hemorrhage or perforation (K25.3) Active confirmed Problem 294991470 Irritable bowel syndrome with diarrhea (K58.0) Active confirmed Problem Dysphagia (95518391) Dysphagia (R13.10) Active confirmed Problem 00418560 Esophageal stricture (K22.2) Active confirmed Problem Gastric polyp (69265287) Gastric polyp (K31.7) Active confirmed Problem 33595639 Dysphagia, unspecified type (R13.10) Active confirmed Problem Gastric ulcer (228889239) Gastric ulcer (K25.9) Active confirmed Vital Signs Temperature 97.3 degrees Fahrenheit 04/04/2024 Blood pressure diastolic 00 mm Hg 04/04/2024 Height 65 in 04/04/2024 Blood pressure systolic 000 mm Hg 04/04/2024 Weight 132 lb 6 oz lbs 04/04/2024 BMI 22.03 kg/m2 04/04/2024 Encounters Encounter Location Date Provider Diagnosis [facility] [address] [place] [id number] 06/10/2024 Inder Wilson Jr Dysphagia R13.10 and Gastric ulcer K25.9 [facility] [address] [place] [address] 04/04/2024 Inder Wilson Jr Acute gastric ulcer without hemorrhage or perforation K25.3 ; Dysphagia, unspecified type R13.10 and termination clerk (current) use of anticoagulants Z79.01 [facility] [address] [place] [address] 06/16/2024 Inder Wilson Jr Assessments Encounter Date Diagnosis (ICD Code) Assessment Notes Treatment Notes Treatment Clinical Notes Section Notes 06/10/2024 Dysphagia (ICD-10 - R13.10) 06/10/2024 Gastric ulcer (ICD-10 - K25.9) 04/04/2024 Acute gastric ulcer without hemorrhage or perforation (ICD-10 - K25.3) We discussed peptic ulcer disease today. We discussed her symptoms. She appears comfortable following her dilation. She can use jpud-tky-howsl er antacids as needed for her reflux [...] comfortable following her dilation. She can use zfbq-kgg-fsmoq er antacids as needed for her reflux symptoms in addition to her higher dose of omeprazole. Followup endoscopy because of her antral ulcers will be arranged. She is aware risks and benefits and agrees to proceed. She will stop Eliquis 3 days before the procedure 04/04/2024 group home (current) use of anticoagulants (ICD-10 - Z79.01) We discussed peptic ulcer disease today. We discussed her symptoms. She appears comfortable following her dilation. She can use drji-ejo-mmdah er antacids as needed for her reflux [...] OF [place] [address] [place] [address] [id number] PAULASHELTON Roy Self - patient is the insured [employer] CLAIM[employer] [address] [place] [address] [id number] SHELTON MITCHELL Self - patient is the [...]
--- OUTSIDE RECORDS SUMMARY | 2025-01-16 10:45 | XMS_ITS | Clinical Summary ---
Author Organization [facility] Address [address] [place] [address] Care Team Providers Care Field Support Technician Name Role Phone Unavailable Primary Care Provider [...] Date Anemia of chronic disease 02/06/2021 Immunizations Immunization Administration Dates Next Due Pneumococcal Polysaccharide 05/02/2014 [...] Due Date Last Done Comments Pneumococcal Vaccine: 50+ Ye ars (2 of 2 - PCV) 05/02/2015 05/02/2014 Influenza Vaccine (#1) 2025 Pneumococcal Vaccine: Peds ( 0 to 5 Years) and At-Risk Patients (6 to 49 Years) Discontinued 05/02/2014 Hepatitis B Vaccine Aged Out No longe r eligible based on patient's age to complete this topic [place] [address] [place] [address] [place] [address] [place] [address] Medicare
== END 2025-01-16 11:09 | disposition home or self-care (01) ==
LOC: HO.HMCSH 09:50
PROVIDERS: PCP Internal Medicine; Visit Provider Internal Medicine
DX: I48.19 Other persistent atrial fibrillation (principal)

== ENCOUNTER → 2025-01-16 09:50 | Outpatient (BNVA) | payer MEDICARE, SELFPAY | PROVIDERS: PCP Internal Medicine; Visit Provider Internal Medicine | DX: Z76.89 Persons encountering health services in other specified circumstances (principal); I48.19 Other persistent atrial fibrillation; I10 Essential (primary) hypertension | CPT/HCPCS: 99202 ==

== ENCOUNTER 2025-02-01 13:55 | Outpatient (AMB) | payer MEDICARE, SELFPAY ==
--- OUTSIDE RECORDS SUMMARY | 2023-11-23 05:20 | XMS_ITS ---
Author Organization [facility] Address [address] [place] [address] Care Team Providers Care Rotary Drier Operator Name Role Phone Cade (RETIRED) , Carlitos Primary Care Provider Inder Gonzalez Jr REASON FOR VISIT Patient presents today for abdominal pain Encounters Encounter Location Date Provider Diagnosis [facility] [address] [place] [address] 11/23/2023 Inder Wilson Jr Plan Of Treatment No Information Progress Notes * SHELTON MITCHELL ADOB:1940 (84 yo F)Acc No.[id number]:11/23/2023 Progress Notes Patient: SHELTON MARTIN Provider: Dede Wilson MD :1940 A ge:83 Y S ex:Female Date:11/23/2023 Address:[address] [place], [place] [id number] Pcp:Carlitos Mohamud (RETIRED) MD Subjective: * Chief Complaints: * 1 . Patient presents today for abdominal pain. * Medical History: Objective: * Vitals: Assessment: Plan: * Treatment: * * The named appointment provid er may or may not be the originator of this progress note, and it is not deemed complete until electronically signed by the appointment provider. Sign off status: Pending * Provider: Dede Wilson MD Date: 11/23/2023 Generated for Printi ng/Faxing/eTransmitting on: 02/01/2025 05:00 PM EDT
--- OUTSIDE RECORDS SUMMARY | 2023-12-16 09:50 | XMS_ITS ---
Author Organization [facility] Address [address] [place] [address] Care Team Providers Care Auto Winder Name Role Phone Cade (RETIRED) , Carlitos Primary Care Provider Unavailable Inder Wilson Jr Unavailable [phone] REASON FOR VISIT DYSPHAGIA, ESOPHAGEAL STRICTURE Problems Problem Type SNOMED Code ICD Code Onset Dates Problem Status W/U Status Risk Notes Problem Gastric polyp (39742825) Gastric polyp (K31.7) Active confirmed Problem Gastric ulcer (985902895) Gastric ulcer (K25.9) Active confirmed Encounters Encounter Location Date Provider Diagnosis [facility] [place] [address] [place] [phone] 12/16/2023 Inder Wilson Jr Dysphagia R13.10 ; Gastric polyp K31.7 and Gastric ulcer K25.9 Assessments Encounter Date Diagnosis (ICD Code) Assessment Notes Treatment Notes Treatment Clinical Notes Section Notes 12/16/2023 Dysphagia (ICD-10 - R13.10) 12/16/2023 Gastric polyp (ICD-10 - K31.7) 12/16/2023 Gastric ulcer (ICD-10 - K25.9) Plan Of Treatment No Information Progress Notes * SHELTON MITCHELL ADOB:1940 (84 yo F)Acc No.[id number]:12/16/2023 EGD/MAC Patient: SHELTON MARTIN Provider: Dede Wilson MD :1940 A ge:83 Y S ex:Female Date:12/16/2023 Address:[address] [place], [place] [phone] Pcp:Carlitos Mohamud (RETIRED) MD Subjective: * Chief Complaints: * 1 . DYSPHAGIA, ESOPHAGEAL STRICTURE. * Medical History: Objective: * Vitals: Assessment: * Assessment: 1. D ysphagia - R13.10 (Primary) 2 . G astric polyp - K31.7 ?3. G astric ulcer - K25.9 Plan: * Treatment: * Procedure Codes: 4 3239 UPPER GI ENDOSCOPY, BIOPSY, 78853 ESOPH ENDOSCOPY, DILATION, Modifiers: 59 * * The named appointment provid er may or may not be the originator of this progress note, and it is not deemed complete until electronically signed by the appointment provider. Sign off status: Pending * Provider: Dede Wilson MD Date: 0 12/16/2023 Generated for Cassidy rob/Raul/Karlaitting on: 02/01/2025 05:00 PM EDT
--- OUTSIDE RECORDS SUMMARY | 2024-06-10 05:50 | XMS_ITS ---
Author Organization [facility] Address [address] [place] [address] Care Team Providers Care Store Planner Name Role Phone Cade (RETIRED) , Carlitos Primary Care Provider Unavailable Inder Wilson Jr Unavailable [phone] REASON FOR VISIT acute gastric ulcer w/o hemorrage Encounters Encounter Location Date Provider Diagnosis [facility] [place] [address] [place] [phone] 06/10/2024 Inder Wilson Jr Dysphagia R13.10 and Gastric ulcer K25.9 Assessments Encounter Date Diagnosis (ICD Code) Assessment Notes Treatment Notes Treatment Clinical Notes Section Notes 06/10/2024 Dysphagia (ICD-10 - R13.10) 06/10/2024 Gastric ulcer (ICD-10 - K25.9) Plan Of Treatment No Information Progress Notes * SHELTON MITCHELL ADOB:1940 (84 yo F)Acc No.[id number]:06/10/2024 EGD/MAC Patient: SHELTON MARTIN Provider: Dede Wilson MD :1940 A ge:84 Y S ex:Female Date:06/10/2024 Address:[address] [place], [place] [phone] Pcp:Carlitos Mohamud (RETIRED) MD Subjective: * Chief Complaints: * 1 . Acute gastric ulcer w/o hemorrage. * Medical History: Objective: * Vitals: Assessment: * Assessment: 1. D ysphagia - R13.10 (Primary) 2 . G astric ulcer - K25.9 ? Plan: * Treatment: * Procedure Codes: 4 3239 UPPER GI ENDOSCOPY, BIOPSY, 40887 ESOPH ENDOSCOPY, DILATION, Modifiers: 59 * * The named appointment provid er may or may not be the originator of this progress note, and it is not deemed complete until electronically signed by the appointment provider. Sign off status: Pending * Provider: Dede Wilson MD Date: 0 06/10/2024 Generated for Cassidy rob/Raul/Karlaitting on: 0 02/01/2025 05:00 PM EDT
[2025-02-01 14:00] VITALS: BP 112/68; PULSE 56; BMI 21.2
--- NOTE | 2025-02-01 14:00 | MHC.OFFVIS ---
Vital Signs 02/01/25 14:00 Height 5 ft 4 in Weight 123 lb 7.342 oz BMI 21.2 BP 112/68 Blood Pressure Location Lt brachial Position Sitting Pulse 56 Pulse Source Pulse Oximeter Intake Visit Reasons: 3 mth f/up Allergies egg (Egg) Allergy (Severe, Verified 01/16/25 10:11) DIARRHEA lactose Allergy (Severe, Verified 01/16/25 10:11) Diarrhea shellfish derived (SHELLFISH DERIVED) Allergy (Severe, Verified 01/16/25 10:11) DIARRHEA sotalol (SOTALOL) Allergy (Severe, Verified 01/16/25 10:11) CARDIAC ARREST soybean oil (Soybean Oil) Allergy (Severe, Verified 01/16/25 10:11) DIARRHEA Medication List - Last Reconciled 02/01/25 by Bryan Malin MD apixaban (Eliquis) 5 mg PO BID calcitriol 0.25 mcg PO 3XW cholecalciferol (vitamin D3) 50 mcg PO DAILY diltiazem HCl CD 240 mg PO DAILY furosemide 40 mg PO DAILY levothyroxine 25 mcg PO DAILY lisinopril 10 mg PO DAILY loperamide 2 mg PO Q6H PRN magnesium oxide 400 mg PO BID multivitamin 1 tab PO DAILY omeprazole 40 mg PO QAM HPI Comments Details: Abby is here for follow up regarding atrial fibrillation. 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 This led to cardiac arrest from which she was successfully resuscitated. Subsequently, she was briefly on hemodialysis. She had a complicated course but then eventually recovered completely. Overall, she is doing quite good. No new concerns. [facility] Medical History Dysphagia IBS (irritable bowel syndrome) Cardiac arrest HTN (hypertension) DNR (do not resuscitate) Pulmonary hypertension Non-rheumatic tricuspid valve insufficiency Persistent atrial fibrillation Surgical History History of esophagogastroduodenoscopy (EGD) History of cholecystectomy History of prolapse of bladder History of hysterectomy History of appendectomy History of esophageal surgery Family History Father Pacemaker Atrial fibrillation Mother Atrial fibrillation Social History (Updated 01/16/25 @ 10:39 by FRANKIE Portillo) Household Members: Spouse Household Members Other:: lives in in law apt. at son's house Housing: House Are you a primary summer child caregiver to a significant other at home: No Do you presently have visiting nurse or other home services: No Alcohol intake: current Alcohol intake frequency: holidays/special occasions only Comment: uses cane for long distances Patient Tobacco Use Status: Never used Tobacco service: No Current occupational status: retired Cognitive needs: No Hearing needs: Yes (b/l hearing aids) Vision needs: Yes (rx glasses) Review of Systems Const Denies weakness ENT Denies dizziness Card Denies chest pain, Denies chest pain with activity, Denies syncope, Denies rapid heart rate, Denies pedal edema, Denies edema, Denies leg edema, Denies lightheadedness, Denies palpitations, Denies dyspnea, Denies dyspnea on exertion and Denies orthopnea Resp Denies cough, Denies dyspnea and Denies dyspnea on exertion GI Denies hematochezia and Denies change in stool character Musc Denies abnormal gait, Denies muscle cramps, Denies muscle weakness, Denies numbness, Denies radiating pain into limb and Denies tingling Neuro Denies abnormal gait, Denies dizziness, Denies syncope, Denies numbness, Denies tingling and Denies weakness Endo Denies palpitations Physical Exam Vital Signs: Last Vital Signs Pulse 56 02/01/25 14:00 BP 112/68 02/01/25 14:00 BMI result Body Mass Index 21.2 Const General: comfortable and no acute distress Orientation/consciousness: patient oriented x3 HEENT Other: Unremarkable Head: Yes normal to inspection Neck Neck: Yes normal visual inspection Chest Chest palpation & inspection: normal inspection of the chest Resp Auscultation: clear to auscultation bilaterally Cardio Palpation: normal PMI Heart sounds: S1 normal heart sound present, S2 normal heart sound present, no gallops, no murmurs and no rubs GI Palpation (GI): Soft to palpation Back/Spine/Pelvis Other: unremarkable Skin General skin exam: no rashes or lesions noted Neuro General: patient oriented x3 Extrem General: Yes normal to inspection Psych Mental Status: mental status grossly normal Assessment & Plan Assessment & Plan (1) Persistent atrial fibrillation: Comment: follows w/[facility] Code(s): I48.19 - Other persistent atrial fibrillation Category: Medical Plan: Stable on current regimen. On diltiazem/Eliquis. (2) Primary hypertension: Code(s): I10 - Essential (primary) hypertension Category: Medical Plan: Continue lisinopril. Check BMP. (3) Non-rheumatic tricuspid valve insufficiency: Comment: Moderate by echo Code(s): I36.1 - Nonrheumatic tricuspid (valve) insufficiency Category: Medical Plan: [id number]-[id number] tricuspid regurgitation in the most recent echocardiogram. In the past, as much as moderate to severe. No specific concerns at this time. Plan Discussion Notes The patient was advised to continue with the current antihypertensive regimen of lisinopril and diltiazem, as it has been effective in controlling blood pressure and heart rate. Patient was informed and verbally consented to the use of an ambient scribe for clinic note documentation during this visit. Patient Instructions: - Continue taking lisinopril and diltiazem as prescribed. - Do lab work as ordered. Coding Level of Care Code Est Pt Level 4 (62295) Complex EM visit Add On G2211 Diagnoses Persistent atrial fibrillation I48.19 Primary hypertension I10 Non-rheumatic tricuspid valve insufficiency I36.1
--- OUTSIDE RECORDS SUMMARY | 2025-02-01 17:00 | XMS_ITS | Patient Health Record ---
Author Organization [facility] Address [address] [place] [address] Care Team Providers Care Materials Handling Coordinator Name Role Phone Cade (RETIRED) Carlitos THACKER Primary Care Provider Unavailable Inder Wilson Jr Unavailable [phone] Allergies Allergen (clinical drug ingredient) Drug/Non Drug Allergy documented on EMR Reaction Allergy Type Onset Date Status dairy intolerant (uncoded) Unknown Allergy Active soybean oil soy brown oil (uncoded) Unknown Allergy Active Shellfish (FN) shell fish (uncoded) Unknown Allergy Active Results Component Value Reference Range Notes Pathology Reviewed date:06/16/2024 02:40:08 PM Interpretation: Performing Lab:[facility], [address] [place] [phone] Notes/Report: Reason For Referral No Information Medications [...] as directed Orally once a day Active Omeprazole 40 MG TAKE 1 CAPSULE 30 MINUTES BEFORE MORNING MEAL ONCE A DAY for 90 days Active Tylenol Extra Strength 500 MG 1 [...] Problem Status W/U Status Risk Notes Problem 481803864 [facility] (current) use of anticoagulants (Z79.01) Active confirmed Problem 63427192 Acute gastric ulcer without hemorrhage or perforation (K25.3) Active confirmed Problem 777903235 Irritable bowel syndrome with diarrhea (K58.0) Active confirmed Problem Dysphagia (04090766) Dysphagia (R13.10) Active confirmed Problem 47005447 Esophageal stricture (K22.2) Active confirmed Problem Gastric polyp (53334267) Gastric polyp (K31.7) Active confirmed Problem 92894414 Dysphagia, unspecified type (R13.10) Active confirmed Problem Gastric ulcer (439940658) Gastric ulcer (K25.9) Active confirmed Vital Signs Temperature 97.3 degrees Fahrenheit 04/04/2024 Blood pressure diastolic 00 mm Hg 04/04/2024 Height 65 in 04/04/2024 Blood pressure systolic 000 mm Hg 04/04/2024 Weight 132 lb 6 oz lbs 04/04/2024 BMI 22.03 kg/m2 04/04/2024 Encounters Encounter Location Date Provider Diagnosis [facility] Out[facility] [address] [place] [id number] 06/10/2024 Inder Wilson Jr Dysphagia R13.10 and Gastric ulcer K25.9 [facility] [address] [place] [address] 04/04/2024 Inder Wilson Jr Acute gastric ulcer without hemorrhage or perforation K25.3 ; Dysphagia, unspecified type R13.10 and long term (current) use of anticoagulants Z79.01 [facility] [address] [facility] [place] [address] 06/16/2024 Inder Wilson Jr [facility] [address] [place], [place] [address] [address] 01/25/2025 Inder Wilson Jr Assessments Encounter Date Diagnosis (ICD Code) Assessment Notes Treatment Notes Treatment Clinical Notes Section Notes 06/10/2024 Dysphagia (ICD-10 - R13.10) 06/10/2024 Gastric ulcer (ICD-10 - K25.9) 04/04/2024 Acute gastric ulcer without hemorrhage or perforation (ICD-10 - K25.3) We discussed peptic ulcer disease today. We discussed her symptoms. She appears comfortable following her dilation. She can use nzwa-www-lbidu er antacids as needed for her reflux [...] comfortable following her dilation. She can use bvit-naw-gcgfe er antacids as needed for her reflux symptoms in addition to her higher dose of omeprazole. Followup endoscopy because of her antral ulcers will be arranged. She is aware risks and benefits and agrees to proceed. She will stop Eliquis 3 days before the procedure 04/04/2024 long term (current) use of anticoagulants (ICD-10 - Z79.01) We discussed peptic ulcer disease today. We discussed her symptoms. She appears comfortable following her dilation. She can use uvmk-hek-cnftk er antacids as needed for her reflux [...] [place] [address] [place] [address] [id number] PAULASHELTON Roy Self - patient is the insured [employer] CLAIMS [address] [place] [address] [id number] SHELTON MITCHELL Self - patient is the [...]
--- OUTSIDE RECORDS SUMMARY | 2025-02-01 17:00 | XMS_ITS | Clinical Summary ---
Author Organization [facility] Address [address] [place] [address] Care Team Providers Care Cuff Matcher Name Role Phone Unavailable Primary Care Provider [...] patient's age to complete this topic [place] [address] [address] [place] [address] [address] Medicare
== END 2025-02-01 14:15 | disposition home or self-care (01) ==
LOC: HO.HCS 13:55
PROVIDERS: PCP Internal Medicine; Visit Provider Internal Medicine
DX: I48.19 Other persistent atrial fibrillation (principal); I10 Essential (primary) hypertension; I36.1 Nonrheumatic tricuspid (valve) insufficiency
CPT/HCPCS: 99214; G2211

== ENCOUNTER 2025-02-01 13:55 | Outpatient (REF) | payer MEDICARE, SELFPAY ==
[2025-02-01 15:39] LABS: Anion Gap 12 (12-20); Blood Urea Nitrogen 18 mg/dL (9-16); Calcium 9.2 mg/dL (8.4-10.2); Carbon Dioxide 30 mmol/L (22-29); Chloride 102 mmol/L (96-108); Estimated Glomerular Filt Rate 46; Potassium 4.2 mmol/L (3.3-5.1); Sodium 140 mmol/L (135-145)
== END 2025-02-01 13:56 | disposition home or self-care (01) ==
LOC: HO.LAB 13:55
PROVIDERS: PCP Internal Medicine; Visit Provider Internal Medicine
DX: I48.19 Other persistent atrial fibrillation (principal); I10 Essential (primary) hypertension; I36.1 Nonrheumatic tricuspid (valve) insufficiency; Z79.899 Other long term (current) drug therapy; Z79.01 Long term (current) use of anticoagulants
CPT/HCPCS: 36415; 80048; 99212

== ENCOUNTER 2025-05-11 10:51 | Outpatient (REF) | payer SELFPAY ==
--- OUTSIDE RECORDS SUMMARY | 2023-11-23 04:20 | XMS_ITS ---
Author Organization [facility] Address [address] [place] [address] Care Team Providers Care Physician In Private Practice Name Role Phone Cade (RETIRED) Carlitos THACKER Primary Care Provider Unavailable Inder Wilson Jr [phone] REASON FOR VISIT Patient presents today for abdominal pain Encounters Encounter Location Date Provider Diagnosis [facility] [address] [place] [address] 11/23/2023 Inder Wilson Jr Plan Of Treatment No Information Progress Notes * SHELTON MITCHELL ADOB:1940 (85 yo F)Acc No.[id number]:11/23/2023 Progress Notes Patient: SHELTON MARTIN Provider: Dede Wilson MD :1940 A ge:83 Y S ex:Female Date:11/23/2023 Address:[address] [place], [place] [id number] Pcp:Carlitos Mohamud (RETIRED) MD Subjective: * Chief Complaints: * P atient presents today for abdominal pain * The named appointment provid er may or may not be the originator of this progress note, and it is not deemed complete until electronically signed by the appointment provider. Sign off status: Pending * Provider: Dede Wilson MD Date: 0 11/23/2023 Generated for Michellei ng/Faeduarg/eTransmitting on: 1 07/12/2024 01:57 PM EST
--- OUTSIDE RECORDS SUMMARY | 2023-12-16 08:50 | XMS_ITS ---
Author Organization [facility] Address [address] [place] [address] Care Team Providers Care Kettle Fry Cook Operator Name Role Phone Cade (RETIRED) , Carlitos Primary Care Provider Unavailable Inder Wilson Jr Unavailable [phone] REASON FOR VISIT DYSPHAGIA, ESOPHAGEAL STRICTURE Problems Problem Type SNOMED Code ICD Code Onset Dates Problem Status W/U Status Risk Notes Problem Gastric polyp (86151294) Gastric polyp (K31.7) Active confirmed Problem Gastric ulcer (337123395) Gastric ulcer (K25.9) Active confirmed Encounters Encounter Location Date Provider Diagnosis [facility] Outpatient [address] [place] [phone] 12/16/2023 Inder Wilson Jr Dysphagia R13.10 ; Gastric polyp K31.7 and Gastric ulcer K25.9 Assessments Encounter Date Diagnosis (ICD Code) Assessment Notes Treatment Notes Treatment Clinical Notes Section Notes 12/16/2023 Dysphagia (ICD-10 - R13.10) 12/16/2023 Gastric polyp (ICD-10 - K31.7) 12/16/2023 Gastric ulcer (ICD-10 - K25.9) Plan Of Treatment No Information Progress Notes * SHELTON MITCHELL ADOB:1940 (85 yo F)Acc No.[id number]:12/16/2023 EGD/MAC Patient: SHELTON MARTIN Provider: Dede Wilson MD :1940 A ge:83 Y S ex:Female Date:12/16/2023 Address:[address] [place], [place] [phone] Pcp:Carlitos Mohamud (RETIRED) MD Subjective: * Chief Complaints: * D YSPHAGIA, ESOPHAGEAL STRICTURE Assessment: * Assessment: 1. D ysphagia - R13.10 (Primary) 2 . G astric polyp - K31.7 ?3. G astric ulcer - K25.9 Plan: * Procedure Codes: 4 3239 UPPER GI ENDOSCOPY, [id number] ESOPH ENDOSCOPY, DILATION, Modifiers: 59 Billing Information: * Procedure Codes: 59316 UPPER GI ENDOSCOPY, BIOPSY. 45829 ESOPH ENDOSCOPY, DILATION. Modifiers: 59 * The named appointment provid er may or may not be the originator of this progress note, and it is not deemed complete until electronically signed by the appointment provider. Sign off status: Pending * Provider: Dede Wilson MD Date: 0 12/16/2023 Generated for Cassidy rob/Raul/Karlaitting on: 1 07/12/2024 01:57 PM EST
--- OUTSIDE RECORDS SUMMARY | 2024-06-10 04:50 | XMS_ITS ---
Author Organization [facility] Address [address] [place] [id number] Care Team Providers Care Marine Fisheries Technician Name Role Phone Cade (RETIRED) , Carlitos Primary Care Provider Unavailable Inder Wilson Jr [phone] REASON FOR VISIT acute gastric ulcer w/o hemorrage Encounters Encounter Location Date Provider Diagnosis [facility] [place] Out[place] [address] [place] [phone] 06/10/2024 Inder Wilson Jr Dysphagia R13.10 and Gastric ulcer K25.9 Assessments Encounter Date Diagnosis (ICD Code) Assessment Notes Treatment Notes Treatment Clinical Notes Section Notes 06/10/2024 Dysphagia (ICD-10 - R13.10) 06/10/2024 Gastric ulcer (ICD-10 - K25.9) Plan Of Treatment No Information Progress Notes * SHELTON MITCHELL ADOB:1940 (85 yo F)Acc No.[id number]:06/10/2024 EGD/MAC Patient: SHELTON MARTIN Provider: Dede Wilson MD :1940 A ge:84 Y S ex:Female Date:06/10/2024 Address:[address] [place], [place] [id number] Pcp:Carlitos Mohamud (RETIRED) MD Subjective: * Chief Complaints: * A cute gastric ulcer w/o hemorrage Assessment: * Assessment: 1. D ysphagia - R13.10 (Primary) 2 . G astric ulcer - K25.9 ? Plan: * Procedure Codes: 4 3239 UPPER GI ENDOSCOPY, [id number] ESOPH ENDOSCOPY, DILATION, Modifiers: 59 Billing Information: * Procedure Codes: 10630 UPPER GI ENDOSCOPY, BIOPSY. 54084 ESOPH ENDOSCOPY, DILATION. Modifiers: 59 * The named appointment provid er may or may not be the originator of this progress note, and it is not deemed complete until electronically signed by the appointment provider. Sign off status: Pending * Provider: Dede Wilson MD Date: 0 06/10/2024 Generated for Cassidy rob/Raul/Karlaitting on: 07/12/2024 01:57 PM EST
--- OUTSIDE RECORDS SUMMARY | 2025-05-11 13:57 | XMS_ITS | Patient Health Record ---
Author Organization [facility] Address [address] [place] [address] Care Team Providers Care On Site Coordinator Name Role Phone Cade (RETIRED) Carlitos THACKER Primary Care Provider Unavailable Inder Wilson Jr Unavailable Allergies Allergen (clinical drug ingredient) Drug/Non Drug Allergy documented on EMR Reaction Allergy Type Onset Date Status dairy intolerant (uncoded) Unknown Allergy Active shell fish (uncoded) Unknown Allergy Active soybean oil soy brown oil (uncoded) Unknown Allergy Active Results Component Value Reference Range Notes Pathology Reviewed date:06/16/2024 02:40:08 PM Interpretation: Performing Lab:[facility], [address] [place] [id number] Notes/Report: Reason For Referral No Information Medications Medication SIG (Take, Route, Frequency, Duration) Notes Start Date End Date Status Magnesium Oxide 400 MG Tablet 1 tablet Orally twice a day Active Calcitriol 0.25 MCG Capsule 1 capsule Or ally three x a week Active Lactaid 3000 UNIT Tablet 1 tablet with f irst bite of dairy - containing food Orally Once a day; Duration: 30 day(s) Active Vitamin D3 50 MCG (1999) Capsule 1 capsule Orally Once a week Active Glucosamine 500 MG Capsule 1 capsule wit h a meal Orally Three times a day; Duration: 30 day(s) Active Move Free Joint Health Advance - Tablet as directed Orally once a day Active Omeprazole 40 MG Capsule Delayed Release TAKE 1 CAPSULE 30 MINUTES BEFORE MORNING MEAL ONCE A DAY; Duration: 90 days Active Tylenol Extra Strength 500 MG Tablet 1 tablet as needed Orally every 6 hrs Active Loperamide HCl 2 MG Capsule 1 1/2 capsul e as needed Orally daily Active Eliquis 5 MG Tablet as directed Orally o nce a day Active Levothyroxine Sodium 25 MCG Tablet 1 tablet in the morning on an empty stomach Orally Once a day Active Multi For Her - Tablet as directed Orally Active dilTIAZem HCl ER Beads 240 MG Capsule Extended Release 24 Hour 1 capsule Orally Once a day; Duration: 30 day(s) Active Furosemide 40 MG Tablet 1 tablet Orally Once a day; Duration: 30 day(s) Active Immunizations Vaccine Route Administration Date Status Comme nts Influenza Unknown 2019 Administered Influenza Unknown 04/24/2022 Administered Influenza Unknown 03/29/2024 Administered Social History Tobacco Use: Social History Observation Description Date Details (start date - stop date) Never Smoker NA - NA Social History Drugs/Alcohol: Social Info Question Answer Notes Alcohol Screen Did you have a drink containing alcohol in the past year? Yes How often did you have a drink containing alcohol in the past year? Monthly or less (1 point) How many drinks did you have on a typical day when you were drinking in the past year? 1 or 2 drinks (0 point) How often did you have 6 or more drinks on one occasion in the past year? Never (0 point) Points 1 Interpretation Negative Tobacco Use: Social Info Question Answer Notes Tobacco Use/Smoking Patient is a nonsmoker Additional Details Category Social Info Options Details Miscellaneous: Marital status: Occupation: retired teacher Problems Problem Type SNOMED Code ICD Code Onset Dates Problem Status W/U Status Risk Notes Problem Long-term current use of anticoagulant (879823313) dental technician (current) use of anticoagulants (Z79.01) Active confirmed Problem Acute gastric ulcer without hemorrhage, without perforation AND without obstruction (00259057) Acute gastric ulcer without hemorrhage or perforation (K25.3) Active confirmed Problem Irritable bowel syndrome with diarrhea (782948739) Irritable bowel syndrome with diarrhea (K58.0) Active confirmed Problem Dysphagia (64169136) Dysphagia (R13.10) Active confirmed Problem Esophageal stricture (55288883) Esophageal stricture (K22.2) Active confirmed Problem Gastric polyp (23447356) Gastric polyp (K31.7) Active confirmed Problem Dysphagia (86060016) Dysphagia, unspecified type (R13.10) Active confirmed Problem Gastric ulcer (284130407) Gastric ulcer (K25.9) Active confirmed Encounters Encounter Location Date Provider Diagnosis [facility] Outpatient [address] [place] [id number] 06/10/2024 Inder Wilson Jr Dysphagia R13.10 and Gastric ulcer K25.9 [facility] [address] [place] [address] 06/16/2024 Inder Wilson Jr [facility] [address] [place] [phone] 01/25/2025 Inder Wilson Jr Assessments Encounter Date Diagnosis (ICD Code) Assessment Notes Treatment Notes Treatment Clinical Notes Section Notes 06/10/2024 Dysphagia (ICD-10 - R13.10) 06/10/2024 Gastric ulcer (ICD-10 - K25.9) Plan Of Treatment Pending Test Test Name [...] Date MEDICARE OF [place] [address] [place] [address] [id number] SHELTON MITCHELL Self - patient is the insured [employer] ATT[employer] CLAIMS [address] [place] [address] [id number] SHELTON MITCHELL Self - patient is the [...] fistula repair 1961 appendectomy 1963 partial hysterectomy 1980 cholecystectomy 2012 ? prolapse bladder 2011 ? laser surgeries on eyes
--- OUTSIDE RECORDS SUMMARY | 2025-05-11 13:58 | XMS_ITS | Clinical Summary ---
Author Organization [facility] Facility Address [address] [place] [address] Care Team Providers Care Supervisor Pipe Finishing Name Role Phone Unavailable Primary Care Provider [...] patient's age to complete this topic [place] [address] [place] [id number] [place] [address] [place] [address] Medicare
== END 2025-05-11 10:52 | disposition home or self-care (01) ==
LOC: HO.HAP 10:51
PROVIDERS: Visit Provider Internal Medicine
DX: Z46.1 Encounter for fitting and adjustment of hearing aid (principal); H90.3 Sensorineural hearing loss, bilateral
CPT/HCPCS: 92593; V5267